=== PATIENT | female | born 1985 | race Caucasian/White ===

== ENCOUNTER 2025-02-11 12:41 | Emergency (ER) | payer OTHER, SELFPAY ==
[2025-02-11] VITALS (10 sets, daily range): BP systolic 108–137; BP diastolic 70–89; PULSE 70–96; RESP 15–20; TEMP 36.4; O2SAT 97–100
--- NOTE | ~2025-02-11 | XR_ITS ---
EXAMINATION: XR ankle LT min 3V DATE: 02/11/2025 13:11 INDICATION: Left ankle pain post injury TECHNIQUE: Anteroposterior and lateral views of the left ankle were obtained. COMPARISON: None. FINDINGS: Oblique fracture of the distal left fibular diaphysis with one shaft width lateral displacement and 2 5 degrees posterior angulation. The lateral malleolus remains in normal alignment relative to the conrad us which is also posteriorly and laterally dislocated relative to the tibial plafond as is a posterio r malleolar fracture which remains in normal alignment with respect to the lateral malleolar fragment and talar dome. There appears to be some heterotopic ossification at the tip the medial malleolus wh ich may represent sequela of old trauma. No acute medial malleolar fractures identified. Normal joint spaces in the visualized mid and hindfoot. Small plantar calcaneal spur. IMPRESSION: 1. Left ankle fracture dislocation including distal fibular diaphyseal and posterior malleolar fractu res and posterior tibiotalar dislocation. Reviewed, dictated and finalized at location A. IMPRESSION: 1. Left ankle fracture dislocation including distal fibular diaphyseal and post erior malleolar fractures and posterior tibiotalar dislocation.
--- NOTE | ~2025-02-11 | XR_ITS ---
EXAMINATION: XR ankle RT min 3V DATE: 02/11/2025 13:11 INDICATION: Right ankle injury with pain TECHNIQUE: Anteroposterior, mortise, and lateral views of the right ankle were obtained. COMPARISON: None. FINDINGS: Alignment is normal. No fracture. Joint spaces are normal. Small plantar calcaneal spur. Soft tissue swelling about the lateral malleolus. IMPRESSION: 1. No acute osseous abnormality. Reviewed, dictated and finalized at location A.
--- NOTE | ~2025-02-11 | XR_ITS ---
EXAM: XR ankle LT min 3V DATE: 02/11/2025 14:31 HISTORY: post reduction . COMPARISON: None available. FINDINGS/IMPRESSION: Interval cast placement and successful left ankle reduction. Considerably improved alignment of the left ankle fracture/dislocation which is now near anatomic. A 4 mm articular surface step-off is noted along the posterior aspect of the tibial plafond. Reviewed, dictated and finalized at location K.
--- OUTSIDE RECORDS SUMMARY | 2025-02-11 13:25 | XMS_ITS | Referral Summary ---
Author Organization [facility] Address [address] [place] [id number] Care Team Providers Care Mixer Dry Food Products Name Role Phone Farrah Marcumedis [facility] Primary Care Pr ovider Gopi Hanks MD Unavailable [phone] Allergies No known active allergies Medications metFORMIN (FORTAMET) 500 mg 24 hr tablet take 1 Tablet by oral route every day with the evening meal 90 3 12/26/2014 Active albuterol HFA (PROVENTIL HFA,VENTOLIN HFA,PROAIR HFA) 90 mcg/actuation inhaler Inhale 2 puffs 12/02/2021 Active Sprintec, 28, 0.25-35 mg-mcg per tablet 12/25/2021 Active cyanocobalamin (Vitamin B-12) 1,000 mcg/mL injection Inject 1 mL under the skin every 30 (thirty) days Active Active Problems Problem Noted Date Diagnosed Date Facial rash 12/30/2021 Overview (01/10/2022): Labs (12/30/21): Cmp/cbc wnl, ESR 11, CRP 11.2, UA trace proteinuria, 3+ blood, neg chromatin AVISE (12/30/21): OTONIEL 1:320 homogenous, neg anti-histone and carP, elevated C3 Assessment & Plan (01/20/2022 1:21 PM CDT): Serologies reveal a +OTONIEL 1:320 homogenous pattern but is otherwise unremarkable for any other autoantibodies. Anti-histone and chromatin ab are negative as well. UA showed 3+ blood however due to menstruation at time of specimen collection per patient report. Continues to have facial rash exacerbated by alcohol intake, fatigue, flu-like feeling , and AM stiffness lasting 20 minutes. Was recently on steroids per pcp for chest wheezing without any improvement of her symptoms further suggesting it is not due to an inflammatory etiology. Overall, serologies are unremarkable and a +OTONIEL is non-specific for a connective tissue disease. Positive OTONIEL is a normal variant that can be seen in females of child-bearing age. There is no clinical or serological evidence at this time to suggest a rheumatological etiology. Would recommend further evaluation by dermatology. Follow up as needed. Seen with Dr. Hanks. Assessment & Plan (12/30/2021 5:10 PM NEONATAL SOCIAL WORKER): 36-year-old female presenting with PMHx migraines and kidney stones c/o facial rash (?malar vs rosacea), fatigue, flu-like feeling , AM stiffness lasting 20 minutes, and joint pain involving the hands. No obvious synovitis or tenderness noted on peripheral exam today. Photos on patient's phone are suspicious for a malar rash however only lasts maximum 24 hours and her other symptoms are nonspecific for a CTD. Symptoms and exam are not overly suspicious for a rheumatological disease. Will order appropriate serologies to further evaluate. Should our work up be unremarkable for a CTD, could consider further evaluation by dermatology next. Follow up in 2 weeks. Sooner if needed. Seen with Dr. Hanks. Adiposity 12/26/2014 Overview (02/12/2017): Obesity Social History Tobacco Use Types Packs/Day Years Used Date Smoking Tobacco: Never Alcohol Use Standard Drinks/Week Comments Yes 0 (1 standard drink = 0.6 oz pur e alcohol) Comments Unknown Sex and Gender Information Value Date Recorded Sex Assigned at Not on file Legal Sex Female 5:01 PM NEONATAL SOCIAL WORKER Gender Identity Not on file Sexual Orientation Not on file Last Filed Vital Signs Vital Sign Reading Time Taken Comments Blood Pressure 130/84 12/30/2021 2:15 PM NEONATAL SOCIAL WORKER Pulse 67 12/30/2021 2:15 PM NEONATAL SOCIAL WORKER Temperature 36.8 C (98.2 F) 01/20/2022 1:03 PM CDT Respiratory Rate - - Oxygen Saturation 98% 12/30/2021 2:15 PM NEONATAL SOCIAL WORKER Inhaled Oxygen Concentration - - Weight 112.1 kg (247 lb 3.2 oz) 01/20/2022 1:03 PM CDT Height 170.2 cm (5' 7 ) 02/10/2017 1:26 PM CDT Body Mass Index 38.72 02/10/2017 1:26 PM CDT Plan of Treatment Not on file Insurance [employer] Care Teams Mixer Dry Food Products Relationship Specialty Start Date End Date Malina Marcum PA PCP - General 02/06/17 Gopi Hanks MD [address] [place] [address] Consulting Physician Rheumatology 11/19/21
--- OUTSIDE RECORDS SUMMARY | 2025-02-11 13:25 | XMS_ITS | Clinical Summary ---
Author Organization [facility] Address [address] [place] [id number] Care Team Providers Care Face Painter Name Role Phone Farrah Marcumedis [facility] Primary Care Pr ovider Gopi Hanks MD Unavailable [phone] Allergies No known active allergies Medications metFORMIN [...] Hanks. Assessment & Plan (12/30/2021 5:10 PM STUFFER): 36-year-old female presenting with PMHx migraines and [...] Dr. Hanks. Adiposity 12/26/2014 Overview (02/12/2017): Obesity Family History Medical History Relation Name Comments Diabetes type II Other Family hist ory of Diabetes mellitus type 2; Relation Name Status Comments Other Social History Tobacco Use Types Packs/Day Years Used Date Smoking Tobacco: Never Alcohol Use Standard Drinks/Week Comments Yes 0 (1 standard drink = 0.6 oz pur e alcohol) Comments Unknown Sex and Gender Information Value Date Recorded Sex Assigned at Not on file Legal Sex Female 5:01 PM STUFFER Gender Identity Not on file Sexual Orientation Not on file Obstetrics History Last Filed Vital Signs Vital Sign Reading Time Taken Comments Blood Pressure 130/84 12/30/2021 2:15 PM STUFFER Pulse 67 12/30/2021 2:15 PM STUFFER Temperature 36.8 C (98.2 F) 01/20/2022 1:03 PM CDT Respiratory Rate - - Oxygen Saturation 98% 12/30/2021 2:15 PM STUFFER Inhaled Oxygen Concentration - - Weight 112.1 kg (247 lb 3.2 oz) 01/20/2022 1:03 PM CDT Height 170.2 cm (5' 7 ) 02/10/2017 1:26 PM CDT Body Mass Index 38.72 02/10/2017 1:26 PM CDT Plan of Treatment Health Maintenance Due Date Last Done Comments Cervical Cancer Screening 1985 Depression Screening 1985 Hepatitis C Screening 1985 DTaP/Tdap/Td Vaccine (1 - Tdap) 1996 Varicella Vaccines (1 of 2 - 13+ 2-dose series) 1998 Hepatitis B Screening 2003 Regular Well Visit/Exam 18-64 2003 Covid-19 Vaccine (2023-2 5 season) 2024 01/26/2021, 01/07/2021, 12/23/2020 Influenza Vaccine (Season Ended) 2025 HPV Vaccines Aged Out No longer eligi ble based on patient's age to complete this topic Pneumococcal vaccine <65 Aged Out No longer eligible based on patient's age to complete this topic Insurance [employer] [facility] [employer] [place] [id number] Care Teams Face Painter Relationship Specialty Start Date End Date Malina Marcum PA PCP - General 02/06/17 Gopi Hanks MD [address] [place] [address] Consulting Physician Rheumatology 11/19/21
--- OUTSIDE RECORDS SUMMARY | 2025-02-11 13:25 | XMS_ITS | Clinical Summary ---
Author Organization [facility] Address [address] [place] [id number] Care Team Providers Care Project Administrative Assistant Name Role Phone Malina Marcum Primary Care Provider [phone] Allergies No known active allergies Medications No known medications Active Problems Problem Noted Date Diagnosed Date Frontal sinusitis 09/10/2023 Maxillary sinusitis 09/10/2023 Butterfly rash 09/10/2023 Cough 09/10/2023 Fatigue 09/10/2023 Hypomenorrhea 09/10/2023 Irregular periods 09/10/2023 Multiple joint pain 09/10/2023 Nasal congestion 09/10/2023 Neck swelling 09/10/2023 Night sweats 09/10/2023 Impaired glucose tolerance 07/06/2023 Insulin resistance 07/06/2023 Vitamin D deficiency 07/06/2023 Weight gain 07/06/2023 Acute sinusitis 01/18/2022 History of severe acute resp iratory syndrome coronavirus 2 (SARS-CoV-2) disease 01/13/2022 Facial rash 12/30/2021 Overview (09/10/2023): Labs (12/30/21): Cmp/cbc wnl, ESR 11, CRP 11.2, UA trace proteinuria, 3+ blood, neg chromatin AVISE (12/30/21): OTONIEL 1:320 homogenous, neg anti-histone and carP, elevated C3 Last Assessment & Plan: Serologies reveal a +OTONIEL 1:320 homogenous pattern [...] up as needed. Seen with Dr. Hanks. Vitamin B12 deficiency (non anemic) 12/20/2021 Adiposity 12/26/2014 Overview (09/10/2023): Obesity Immunizations Name Administration Dates Next Due MODERNA COVID-19 (12+) MRNA, LNP-S, PF, 100 MCG/ 0.5 ML DOSE 01/26/2021,12/29/2020 Social History Tobacco Use Types Packs/Day Years Used Date Smoking Tobacco: Never Smokeless Tobacco: Never Tobacco Cessation:Counseling Given: No Alcohol Use Standard Drinks/Week Comments Not Currently 0 (1 standard drink = 0.6 oz pur e alcohol) PHQ-2 Answer Date Recorded Patient Health Questionnaire-2 Score 0 08/08/2024 Comments No Sex and Gender Information Value Date Recorded Sex Assigned at Not on file Legal Sex Female 9:27 AM CDT Gender Identity Not on file Sexual Orientation Not on file Last Filed Vital Signs Vital Sign Reading Time Taken Comments Blood Pressure 103/69 08/08/2024 7:40 AM CDT Pulse 66 08/08/2024 7:40 AM CDT Temperature 36.9 C (98.5 F) 12/04/2023 2:09 PM EDGE POLISHER Respiratory Rate 18 12/04/2023 2:09 PM EDGE POLISHER Oxygen Saturation 99% 08/08/2024 7:40 AM CDT Inhaled Oxygen Concentration - - Weight 106.6 kg (235 lb) 08/08/2024 7:40 AM CDT Height 175.3 cm (5' 9 ) 08/08/2024 7:40 AM CDT Body Mass Index 34.7 08/08/2024 7:40 AM CDT Plan of Treatment Upcoming Encounters Date Type Department Care Team (Late st Contact Info) Description 02/22/2025 10:20 AM CDT Office Visit [facility] - [facility] [address], [address] [place] [address] Dary Fields MD [address] [place] [address] Health Maintenance Due Date Last Done Comments Cervical Cancer Screening Pa p Smear (Age 30 to 64) Every 3 Years 1985 Annual Physical 1988 Hepatitis C 2003 DTaP, Tdap and Td Vaccines ( 1 - Tdap) 2004 Hepatitis B Vaccines (1 of 3 - 19+ 3-dose series) 2004 Cervical Cancer Screening Pa p with HPV Testing (Age 30 to 64) Every 5 Years 2015 Cervical Cancer Screening wi th HPV 2015 COVID-19 Vaccine (3 - 2023-2 5 season) 2024 01/26/2021, 12/29/2020 PHQ-2 ([facility]) 11/09/2024 08/08/2024 HPV Vaccines Aged Out No longer eligi ble based on patient's age to complete this topic Meningococcal B Vaccine Aged Out No l onger eligible based on patient's age to complete this topic Meningococcal Vaccine Aged Out No jonathan armen eligible based on patient's age to complete this topic Pneumococcal Vaccine: Pediatrics (0 to 5 Years) and At-Risk Patients (6 to 64 Years) Aged Out No longer eligible b ased on patient's age to complete this topic RSV Immunizations Under 20 Months Aged Out No longer eligible b ased on patient's age to complete this topic Insurance [facility] Care Teams Project Administrative Assistant Relationship Specialty Start Date End Date Malina Marcum PA [address] [place] [address] PCP - General PHYSICIAN COMBAT SYSTEMS OPERATOR [employer] 06/30/21
--- OUTSIDE RECORDS SUMMARY | 2025-02-11 13:25 | XMS_ITS | Data Portability ---
Author Organization [facility], Main Office Address [address] [place] [address] Assessment No assessment recorded. Plan of Treatment Reminders Order Date Submit Date Provider Last Modified By Organization Details Last Modified Time Details Appointments None recorded. Lab TSH + free T4, serum 2022 023 [email or web address] [facility], [address] [address], [place], [address], 4 16:33:24 T3, free, serum or plasma 2022 023 [email or web address] [facility], [address] [place] [address], [place], [address], 4 16:33:24 OTONIEL (antinuclea r antibodies) screen, serum 2022 023 [email or web address] [facility], [address] [place] [address], [place], [address], 4 16:33:23 HbA1c (hemoglobin A1c), blood 2022 023 [email or web address] [facility], [address] [place] [address], [place], [address], 4 16:33:23 insulin, serum 2022 023 [email or web address] [facility], [address] [address], [place], [address], 4 16:33:22 lipid panel, serum 08/28/ 2023 08/28/2 023 [email or web address] [facility], [address] [address], [place], [address], 4 16:33:23 CMP, serum or plasma 2022 023 [email or web address] [facility], [address] [address], [place], [address], 4 16:33:23 CBC w/ auto diff 2022 023 [email or web address] [facility], [address] [place] [address], [place], [address], 4 16:33:23 iron + TIBC + ferritin, serum 2022 023 [email or web address] [facility], [address] [place] [address], [place], [address], 4 16:33:24 vitamin B12 + folate, serum or blood 2022 023 [email or web address] [facility], [address] [place] [address], [place], [address], 4 16:33:25 vitamin D, 25-hydroxy, total, serum 2022 023 [email or web address] [facility], [address] [place] [address], [place], [address], 4 16:33:25 rf (rheumatoid factor), serum 2022 023 [email or web address] [facility], [address] [place] [address] 2, [place], [address], 4 16:33:23 C reactive protein, QN, serum or plasma 2022 023 [email or web address] [facility], [address] [place] [address], [place], [address], 4 16:33:24 ESR (erythrocyt e sedimentati on rate), blood 2022 023 [email or web address] [facility], [address], [place], [address], 4 16:33:24 Referral None recorded. Procedures None recorded. Surgeries None recorded. Imaging None recorded. Medication Orders phentermine 37.5 mg tablet 2022 023 [email or web address] [facility] [address], [place], [address], 3 14:15:19 Patient TargetsNo targets recorded. Patient InstructionsNo instructions recorded. Reason for Referral None Reported. Results Created Date Observation Date Name Description Value Unit Range Abnormal Flag Note LastModifiedBy Organization Detail LastModifiedTime 10/14/20 21 10/14/2021 pregn karan test, urine HCG negati ve Not Available [facility] [address], [address], [place], [address], 10/14/2021 16:39:59 11/27/19 22 11/27/2021 XR, chest , 2 view No observ ation record ed. [id number], [place], [address], 01/07/2023 07:36:21 03/19/20 22 03/07/2022 polys omnog philippe, split night No observ ation record ed. [id number] [facility] ([facility]) [address] [place], [address], 01/07/2023 07:36:21 Result Notes None recorded. Problems Name Problem SNOMED Code Status Onset Date Resolution Date Notes Provider Name and Address Organization Details Recorded Time Acute sinusitis 23413837 Active 2021 Not Available [facility] 3 07:31:35 History of SARS-CoV- 2 [id number] 9024795 Active 2021 Not Available [facility] 3 07:31:35 Neck swelling 421622609 Active Not Available [facility] 3 07:31:35 Butterfly rash 32442031 Active Not Available [facility] 3 07:31:35 Multiple joint pain 94918435 Active Not Available [facility] 3 07:31:35 Night sweats 46642914 Active Not Available [facility] 3 07:31:35 Acute urinary tract infection 737236206 Active 2022 Not Available [facility] 3 07:31:36 Cough 34080886 Active Not Available [facility] 3 07:31:36 Vitamin B12 deficienc y (non anemic) 29367180 Active 2021 Not Available [facility] 3 07:31:36 Hypomenor nestor 63919227 Completed Not Available [facility] 3 07:31:36 Nasal congestio n 29494399 Active Not Available [facility] 3 07:31:36 Frontal sinusitis 51840711 Active Not Available [facility] 3 07:31:36 Irregular periods 85053744 Completed Not Available [facility] 3 07:31:36 Fatigue 93603017 Active Not Available [facility] 3 07:31:36 Maxillary sinusitis 05078607 Active Not Available [facility] 3 07:31:36 Insulin resistanc e 034075914 Active 2022 JAJA Martel [address], [address], [address] , [email or web address] 3 16:13:49 Impaired glucose tolerance 4161321 Active 2022 JAJA Martel [address], [address], [place], [address] , [email or web address] 3 16:14:30 Weight gain 7618385 Active 2022 JAJA Martel [address], [address], [place], [address] , [email or web address] 3 16:15:10 Vitamin D deficienc y 30697745 Active 2022 JAJA Martel [address], [address], [place], [address] , [facility] [employer] 3 16:16:40 Stomach cramps 32072929 Active 2022 JAJA Martel [address], [address], [place], [address] , [employer] 3 17:28:54 Notes:COVID-19 pos 11/02/21 Problem Notes None recorded. Procedures Surgical History Date Name Laterality Status Provider Name and Address Organization Details Recorded Time 08/26/2018 Date of Last Pap Smear completed Not Available [facility] 01/07/2023 07:26:54 Imaging Results Imaging Date Name Status LastModified by [facility] Details LastModified Time 03/07/2022 polysomnogr am, split night completed [id number] [facility] ([facility]) [address] [place], [address], 01/07/2023 07:36:21 11/27/2021 XR, chest, 2 view completed [id number], [place], [address], 01/07/2023 07:36:21 Procedure Notes None recorded. Medical Equipment None Reported. Allergies No known drug allergies Medications Name Sig Start Date Stop Date Status Note LastModified by Organization Details LastModified Time Aviane 0.1 mg-20 mcg tablet Take 1 tablet every day by oral route. 09/23 completed Not Available Not Available Not Available azithromyci n 250 mg tablet TAKE 2 TABLETS BY MOUTH ON DAY 1, AND THEN TAKE 1 TABLET BY MOUTH ONCE A DAY ON DAY 2 THROUGH DAY 5 03/07 completed Not Available Not Available Not Available benzonatate 200 mg capsule Take 1 capsule 3 times a day by oral route as needed. 11/23 completed Not Available Not Available Not Available hydrocodone 5 mg-acetamin ophen 325 mg tablet TK 1 T PO Q 6 H PRN P 09/23 completed Not Available Not Available Not Available Medrol (Dino) 4 mg tablets in a dose pack use as directed 12/11 completed Not Available Not Available Not Available prednisone 20 mg tablet TAKE 2 TABLETS BY MOUTH ONCE DAILY FOR 5 DAYS active Not Available Not Available No t Available [employer] USE DIRECTED 07/06 completed Not Available Not Available Not Available phentermine 37.5 mg tablet TAKE 1 TABLET BY MOUTH ONCE DAILY IN THE MORNING active Not Available Not Available No t Available sulfamethox azole 800 mg-trimetho prim 160 mg tablet TAKE 1 TABLET BY MOUTH TWICE DAILY FOR 7 DAYS 12/02 completed Not Available Not Available Not Available famotidine 20 mg tablet 06/10 completed Not Available Not Available Not Available tamsulosin 0.4 mg capsule 09/23 completed Not Available Not Available Not Available benzonatate 100 mg capsule TAKE 1 CAPSULE BY MOUTH EVERY 8 HOURS NEEDED active Not Available Not Available No t Available cyanocobala min (vit B-12) 1,000 mcg/mL injection solution Inject 2 mL every month by subcutane ous route. 07/06 completed [facility] [phone] Not Available Not Available Not Available Cipro 500 mg tablet Take 1 tablet every 12 hours by oral route. 09/23 completed Not Available Not Available Not Available codeine 10 mg-guaifene sin 100 mg/5 mL oral liquid Take 10 mL every 4-6 hours by oral route as needed. 01/13 completed Not Available Not Available Not Available zolpidem 5 mg tablet 07/06 completed Not Available Not Available Not Available ibuprofen 600 mg tablet Take by oral route as needed for 5 days. 09/23 completed Not Available Not Available Not Available hydrocodone 10 mg-chlorphe niramine 8 mg/5 mL oral susp extend.rel 12hr TAKE 5ML PO Q 12 H 06/10 completed Not Available Not Available Not Available albuterol sulfate HFA 90 mcg/actuati on aerosol inhaler Inhale 2 puffs every 4-6 hours by inhalatio n route as needed. 07/06 completed Not Available Not Available Not Available Vitamin D2 1,250 mcg (50,000 unit) capsule Take 1 capsule every week by oral route. 09/23 completed Not Available Not Available Not Available ondansetron 4 mg disintegrat ing tablet 09/23 completed Not Available Not Available Not Available metformin ER 500 mg tablet,exte nded release 24 hr TAKE 1 TABLET BY MOUTH ONCE DAILY WITH DINNER 07/06 completed Not Available Not Available Not Available dicyclomine 10 mg capsule TAKE 1 CAPSULE BY MOUTH THREE TIMES DAILY NEEDED active Not Available Not Available No t Available spironolact one 50 mg tablet TAKE 1 TABLET BY MOUTH ONCE DAILY IN THE MORNING 07/06 completed Not Available Not Available Not Available amoxicillin 875 mg-potassiu m clavulanate 125 mg tablet TAKE 1 TABLET BY MOUTH EVERY 12 HOURS active Not Available Not Available No t Available Sprintec (28) 0.25 mg-0.035 mg tablet TAKE 1 TABLET BY MOUTH ONCE DAILY 07/06 completed Not Available Not Available Not Available nitrofurant oin monohydrate /macrocryst als 100 mg capsule TAKE 1 CAPSULE BY MOUTH EVERY 12 HOURS 01/12 completed Not Available Not Available Not Available Vitals Date Recorded Body height Provider Name an d Address Organization Details Last Updated DateTime 11/12/2021 177.8 cm Not Available [facility] 3 07:30:45 Date Recorded Body height Provider Name an d Address Organization Details Last Updated DateTime 12/02/2021 177.8 cm Not Available [facility] 3 07:30:45 Date Recorded Body height Body temperature Provider N isaak and Address Organization Details Last Updated DateTime 12/20/2021 177.8 cm 97.2 [degF] Not Available [facility] 01/07/2023 07:30:47 Date Recorded Body height Body temperature Body mass index (BMI) Body weight Respiratory rate Oxygen saturation Oxygen saturation in Arterial blood by Pulse oximetry Heart rate Systolic blood pressure Diastolic blood pressure Provider Name and Address Organization Details Last Updated DateTime 3 177.8 cm 97.7 [degF] 35.2 kg/m2 276550. 13 g 16 /min 98 % 98 % 75 /min 122 mm[Hg] 72 mm[Hg] DIXIE Rene [place] [facility] [place] [email or web address] [facility] 3 15:52:45 Date Recorded Systolic blood pressure Diastolic blood pressure Provider Name and Address Organization Details Last Updated DateTime 07/06/2023 120 mm[Hg] 70 mm[Hg] JAJA Martel [address], [facility] [address], [place], [address], [place] [facility] [place] [email or web address] [facility] 07/06/2023 16:17:29 Social History Question Answer Notes LastModified by Organizat ion Details LastModified Time Tobacco Smoking Status Never Smoker Not Available [facility] 01/07/2023 07:26:49 What Is Your Level Of Alcohol Consumption? None [id number] Information not available 01/07/2023 What Is Your Level Of Caffeine Consumption? None MIGRATION.[id number] 2182 Information not available 01/07/2023 How Much Tobacco Do You Chew? None MIGRATION.[id number] 0385 Information not available 01/07/2023 In The 14 Days Before Symptom Onset, Have You Had Close Contact With A Laboratory-confir med COVID-19 While That Case Was Ill? No MIGRATION.[id number] 1672 Information not available 01/07/2023 In The 14 Days Before Symptom Onset, Have You Had Close Contact With A Person Who Is Under Investigation For COVID-19 While That Person Was Ill? No MIGRATION.[id number] 9203 Information not available 01/07/2023 Are You Currently Employed? Yes [email or web address] Information not available 01/12/2023 What Type Of Diet Are You Following? REGULAR MIGRATION.[id number] [id number] Information not available 01/07/2023 Which Illicit Or Recreational Drugs Have You Used? None MIGRATION.[id number] 4777 Information not available 01/07/2023 Do You Or Have You Ever Used E-cigarettes Or Vape? 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 No MIGRATION.510192 2895 Information not available 01/07/2023 Do You Use Insect Repellent Routinely? No [email or web address] Information not available 01/12/2023 What Is Your Relationship Status? Single MIGRATION.862190 1429 Information not available 01/07/2023 Do You Use Your Seat Belt Or Car Seat Routinely? Yes MIGRATION.127159 6204 Information not available 01/07/2023 Do You Have Smoke And Carbon Monoxide Detectors In Your Home? Yes MIGRATION.560816 6084 Information not available 01/07/2023 Do You Or Have You Ever Used Smokeless Tobacco? Never Used Smokeless Tobacco MIGRATION.936424 1733 Information not available 01/07/2023 How Much Tobacco Do You Smoke? No MIGRATION.068475 1607 Information not available 01/07/2023 Do You Use Any Illicit Or Recreational Drugs? No MIGRATION.842836 4041 Information not available 01/07/2023 Do You Use Sunscreen Routinely? Yes [email or web address] Information not available 01/12/2023 Have You Recently Traveled Abroad? No MIGRATION.665155 9849 Information not available 01/07/2023 Do You Have Any Dietary Restrictions? No MIGRATION.972678 4201 Information not available 01/07/2023 Do You Or Have You Ever Used Any Other Forms Of Tobacco Or Nicotine? No MIGRATION.758419 1535 Information not available 01/07/2023 Sex: Female Functional Status Question Answer Note LastModified by [employer] ion Details LastModified Time What is your exercise level? Occasional [id number] Information not available 01/07/2023 Mental Status None recorded. Family History Relationship Description Onset Age of this Age Resolved Age Notes LastModified by Organization Details LastModified Time Father Vitamin D deficiency [id number] [id number] Not available 01/07/2023 07:26:58 Maternal Grandmother Malignant tumor of breast MIGRATION.540 [id number] Not available 01/07/2023 07:26:58 Unspecified Relation Malignant tumor of colon MIGRATION.734 [id number] Not available 01/07/2023 07:26:58 Unspecified Relation Malignant tumor of lung MIGRATION.449 [id number] Not available 01/07/2023 07:26:58 Unspecified Relation Diabetes mellitus MIGRATION.515 [id number] Not available 01/07/2023 07:26:58 Mother Diabetes mellitus MIGRATION.292 [id number] Not available 01/07/2023 07:26:58 Mother Cerebrovascu lar accident MIGRATION.989 [id number] Not available 01/07/2023 07:26:58 Mother Hypertensive disorder MIGRATION.952 [id number] Not available 01/07/2023 07:26:58 Mother Heart disease Pacema ker MIGRATION.249 [id number] Not available 01/07/2023 07:26:58 Mother Cirrhosis of liver MIGRATION.249 [id number] Not available 01/07/2023 07:26:58 Mother Raynaud's disease [email or web address] Not available 07/06 15:51:22 Mother Carotid artery stenosis [email or web address] Not available 07/06 15:51:56 Mother Nonalcoholic steatohepati tis [email or web address] Not available 07/06 15:54:23 Medical History Condition Response HEADACHES/MIGRAINES Y ANXIETY DISORDER Y OBESITY Y KIDNEY STONES Y DIZZINESS Y SKIN PROBLEMS Y URINARY/BLADDER/KIDNEY PROBLEMS Y DEPRESSION (INCLUDING POST ) Y BACK / NECK PROBLEMS Y SLEEP DISORDER Y Gynecological History Statement/Question Response Menses Monthly Y Date of Last Pap 06/09/2019 Abnormal Pap N Date of Last Pap Smear 08/26/2018 Current Control Method None Date of LMP 09/28/2021 Sexually Active? Y Obstetrics History GPAL:G 1 P 0 0 0 1 Type Value Living 1 Total 1 Immunizations Vaccine Type Date Status Note Provider Nam e and Address Organization Details Recorded Time COVID-19, mRNA, LNP-S, PF, 100 mcg/0.5mL dose or 50 mcg/0.25mL dose 01/07/2021 completed Not Available [facility] 3 07:36:08 COVID-19, mRNA, LNP-S, PF, 100 mcg/0.5mL dose or 50 mcg/0.25mL dose 12/23/2020 completed Not Available [facility] 3 07:36:08 Past Encounters Encounter ID Performer Location Encounter Start Date Encounter Closed Date Diagnosis/Indication Diagnosis SNOMED-CT Code Diagnosis ICD10 Code Diagnosis Note [id number] [facility] [address] [address], [address] [place] [address] 09/23/2021 00:00:00 10/08/2021 16:41:07 [id number] _ATHENA_M IGRATION_ DEFAULT_1 _1 , 10/14/2021 00:00:00 10/14/2021 17:21:54 [id number] [facility] [address] [address], [address] [place] [address] 11/12/2021 00:00:00 12/09/2021 21:17:05 [id number] [facility] [address] [address], [address] [place] [address] 11/22/2021 00:00:00 11/25/2021 13:30:26 [id number] [facility] [address] JAYSHREE [place]CLAY [address] 12/02/2021 00:00:00 12/08/2021 21:59:09 [id number] [facility] [address] [place]REE [place]CL[place] [address] 12/20/2021 00:00:00 12/20/2021 19:10:39 [id number] JAJA Martel [facility] [address] [place] [address] 07/06/2023 15:46:45 07/06/2023 16:25:17 Adult health examination 546121401 Z00.00 well exam completed. annual fasting labs are ordered Cholesterol screening 27 8798416 Z13.220 fasting lipids due Insulin resistance 78168 5000 E88.81 fasting insulin due Impaired g lucose tolerance 6813775 R73.03 a1c due Butterfly rash 40084769 R21 repeat OTONIEL panel multiplex Weight gain 3604003 R63. 5 screening TFTs due Multiple joint pain 3567 8005 M25.50 screening ESR, CRP and RF Fatigue 09450599 R53.83 screening iron panel and b12, folate Vitamin D deficiency 347 60635 E55.9 vit D lab due Body mass index 30+ - obesity 677303460 Z68.35 Rx for phentermin e 37.5mg daily. Health Concerns Section Related Observation LastModified by Organization Detai ls LastModified Time None Recorded Concern Status LastModified by Organization Details LastModified Time None Recorded Advance Directives Directive None Recorded Payers Encounter Date Sequence Insurance Name Policy Number Policy Mccall Covered Member ID Mccall Member ID Guarantor Name 07/06/2023 1 [facility] [employer] [facility] [id number] Corrine Robertson [id number] Corrine Robertson Notes Date Note Type Note Provider Name and Address Organization Details Recorded Time 11/12/2021 text/html Generic HPI TemplateReported bypatient.Notes:Pt is f/u w/ labs. They are in review to you. Not Available [place] [facility] 12/09/2021 21:17:05 12/02/2021 text/html VomitingReported bypatient.Quality:not changing Duration:days; 1 weeks Onset/Timing:acute; intermittent Context:no one else with similar symptoms; no possible food sources; no recent travel; no well water; non-smoker; no drug/alcohol abuse; no drug alcohol withdrawal Alleviating Factors:nothing gives relief Aggravating Factors:nothing makes it worse Associated Symptoms:fever(99 range)Notes:Pt states first time it was after dinner. Then it happened at 2 am once. Also happened again while in the shower. Says it happens out of the blue.WheezingReported bypatient.Quality:tig htness;can't get a deep breath Severity:mild Duration:1 weeks; constant Onset/Timing:at night; wakes from sleep Context:when lying down; after respiratory illness (COVID-19 pos 11/03/21) Alleviating factors:nothing helps (been trying zyrtec) Aggravating factors:nothing makes it worse Associated Symptoms:no chest pain; no palpitations; no orthopnea; no PND; no chills; no sputum production; no hemoptysis; no dyspepsia; no allergies;fever Not Available [employer] 12/08/2021 21:59:09 07/06/2023 text/html Generic HPI TemplateReported bypatient.Notes:Pt is here for wellness. No chronic meds. she continues to have the flare ups of facial/cheek rash that is red and she has episodes weekly of feeling feverish with no registered fever when she checks. She still have fatigue that is intense and joint pains. Weight continues to climb. Strong fam hx of autoimmune problems but she saw Rheumatology a few years ago and they did not feel autoimmune was an issue. wellness JAJA Martel [address] [facility], [facility] [address], [place], [address], [employer] 07/07/2023 14:20:27 OBGyn Episode No OBEpisode recorded.
--- OUTSIDE RECORDS SUMMARY | 2025-02-11 13:25 | XMS_ITS | Data Portability ---
Author Organization [facility] Address [address] [place] [address] Care Team Providers Care Quarter Trimmer Name Role Phone MALINA ALDANA Primary Care Provider Unavailab le Assessment No assessment recorded. Plan of Treatment Reminders Order Date Submit Date Provider Last Modified By Organization Details Last Modified Time Details Appointments ANY 15 2024 01:15P M AJJA Martel Not available Not available Not available Lab OTONIEL (antinucl ear antibodie s) screen, serum 2023 024 [place], [address], [place], [address], 12/01/2024 09:08:47 lipid panel, serum 2023 024 [facility], [address], [place], [address], 12/01/2024 09:08:49 vitamin B12 + folate, serum or blood 2023 024 [facility], [address], [place], [address], 12/01/2024 09:08:53 vitamin D, 25-hydrox y, total, serum 2023 024 [facility] [facility], [address], [place], [address], 12/01/2024 09:09:03 CMP, serum or plasma 2023 024 [facility], [address], [place], [address], 12/01/2024 09:08:51 CBC w/ auto diff 2023 DOM [facility], [address], [place], [address], 12/01/2024 09:08:59 iron + total iron-bind ing capacity (TIBC), serum 2023 DOM [facility], [address], [place], [address], 12/01/2024 09:08:54 ferritin, serum or plasma 2023 DOM [facility], [address], [place], [address], 12/01/2024 09:08:58 TSH + free T4, serum 2023 DOM [facility], [address], [place], [address], 12/01/2024 09:08:50 rf (rheumato id factor) + anti-ccp abs, serum 2023 DOM [facility], [address], [place], [address], 12/01/2024 09:08:46 erythrocy te sedimenta tion rate by westergre n method 2023 DOM [facility], [address], [place], [address], 12/01/2024 09:09:00 C reactive protein, QN, serum or plasma 2023 DOM [facility], [address], [place], [address], 12/01/2024 09:09:02 HbA1c (hemoglob in A1c), blood 2023 024 DOM [facility], [address], [place], [address], 12/01/2024 09:08:55 insulin, serum 2023 024 DOM [facility], [address], [place], [address], 12/01/2024 09:08:57 OTONIEL (antinucl ear antibodie s) screen, serum 2023 024 [email or web address] [facility], [address], [place], [address], 06/02/2024 09:46:04 lipid panel, serum 2023 024 [email or web address] [facility], [address], [place], [address], 05/11/2024 10:43:33 vitamin B12 + folate, serum or blood 2023 024 [email or web address] [facility], [address], [place], [address], 05/11/2024 10:44:45 vitamin D, 25-hydrox y, total, serum 2023 024 [email or web address] [facility], [address], [place], [address], 05/11/2024 10:44:36 CMP, serum or plasma 2023 024 [email or web address] [facility], [address], [place], [address], 05/11/2024 10:44:27 CBC w/ auto diff 2023 024 [email or web address] [facility], [address], [place], [address], 05/11/2024 10:44:11 iron + total iron-bind ing capacity (TIBC), serum 2023 [email or web address] [facility], [address], [place], [address], 05/11/2024 10:43:59 ferritin, serum or plasma 2023 [email or web address] [facility], [address], [place], [address], 05/11/2024 10:43:49 TSH + free T4, serum 2023 [email or web address] [facility], [address], [place], [address], 05/11/2024 10:43:41 rf (rheumato id factor) + anti-ccp abs, serum 2023 [email or web address] [facility], [address], [place], [address], 05/11/2024 10:45:15 erythrocy te sedimenta tion rate by westergre n method 2023 [email or web address] [facility], [address], [place], [address], 05/11/2024 10:45:03 C reactive protein, QN, serum or plasma 2023 [email or web address] [facility], [address], [place], [address], 05/11/2024 10:44:54 HbA1c (hemoglob in A1c), blood 2023 [email or web address] [facility], [address], [place], [address], 05/11/2024 10:43:24 insulin, serum 2023 [email or web address] [facility], [address], [place], [address], 05/11/2024 10:43:[address] referral 2023 024 [facility], [address], [place], [address], 07/08/2024 13:42:37 Procedures None recorded. Surgeries None recorded. Imaging MRI, brain, w/wo contrast 2023 [facility], [address], [address], [place], [address], 07/08/2024 13:42:17 Medication Orders trazodone 50 mg tablet 2023 024 [facility], [address], [address], 10/05/2024 09:40:37 Medrol (Dino) 4 mg tablets in a dose pack 2023 025 [facility], [address], [address], 12/16/2024 12:42:25 trazodone 50 mg tablet 2023 024 [facility], [address], [address], 03/03/2024 15:49:24 phentermi ne 37.5 mg tablet 2023 024 [facility], [id number], [address], 10/05/2024 09:20:42 Patient TargetsNo targets recorded. Patient Instructions Encounter Date Encounter Id Patient Instructions Last Modified By Organization Details Last Modified Time 10/05/2024 [id number] A healthy lifestyle: care instructions [email or web address] Not available 10/05/2024 09:40:32 Reason for Referral Neurologist Referral for Par esthesia Referring Physician: Malina Aldana, Internal Medicine, Encounter Date: 03/03/2024 Results Created Date Observation Date Name Description Value Unit Range Abnormal Flag Note LastModifiedBy Organization Detail LastModifiedTime 11/25/1911/26/2024 RHEUM ATOID ARTHR ITIS PROFI LE rheumatoid factor (rf) <10.0 IU/mL <14.0 Not Available [facility]) [address] [place], [address], 12/01/2024 09:08:46 11/25/1911/26/2024 RHEUM ATOID ARTHR ITIS PROFI LE anti-ccp Ab, IgG/IgA 3 units 0-19 Negat ashlyn <20 Weak posit ashlyn 20 - 39 Moder ate posit ashlyn 40 - 59 Stron g posit ashlyn >59 Not Available [facility] ([facility]) [address] [place], [address], 12/01/2024 09:08:46 11/25/19 25 11/28/2024 ANTIN UCLEA R AB MULTI PLEX RFX 9 OTONIEL direct NEGATI VE negati ve Not Available [facility] ([facility]) [address] [place], [address], 12/01/2024 09:08:47 11/25/1911/27/2024 LIPID PANEL W/ CHOL/ HDL RATIO cholesterol, total 146 mg/dL 100-19 9 Not Available [facility] ([facility]) [address] [place], [address], 12/01/2024 09:08:48 11/25/19 25 11/27/2024 LIPID PANEL W/ CHOL/ HDL RATIO triglyceride s 62 mg/dL 0-149 Not Available [facility]) [address] [place], [address], 12/01/2024 09:08:48 11/25/1911/27/2024 LIPID PANEL W/ CHOL/ HDL RATIO HDL cholesterol 38 mg/dL >39 below low normal Not Available [facility] ([facility]) [address] [place], [address], 12/01/2024 09:08:48 11/25/19 25 11/27/2024 LIPID PANEL W/ CHOL/ HDL RATIO VLDL cholesterol taco 13 mg/dL 5-40 Not Available [facility]) [address] [place], [address], 12/01/2024 09:08:48 11/25/19 25 11/27/2024 LIPID PANEL W/ CHOL/ HDL RATIO LDL chol calc ([facility]) 95 mg/dL 0-99 Not Available [facility]) [address] [place], [address], 12/01/2024 09:08:48 11/25/1911/27/2024 LIPID PANEL W/ CHOL/ HDL RATIO T. chol/HDL ratio 3.8 ratio 0.0-4. 4 T. Chol/ HDL Ratio Men Women 1/2 Avg.R isk 3.4 3.3 Avg.R isk 5.0 4.4 2X Avg.R isk 9.6 7.1 3X Avg.R isk 23.4 11.0 Not Available [facility] ([facility]) [address] [place], [address], 12/01/2024 09:08:48 11/25/1911/26/2024 TSH+F REE T4 TSH 2.620 uIU/m L 0.450- 4.500 Not Available [facility] ([facility]) [address] [place], [address], 12/01/2024 09:08:50 11/25/19 25 11/26/2024 TSH+F REE T4 T4,free(dire ct) 0.90 NG/dL 0.82-1 .77 Not Available [facility] ([facility]) [address] [place], [address], 12/01/2024 09:08:50 11/25/19 25 11/27/2024 COMP. METAB OLIC PANEL (14) glucose 86 mg/dL 70-99 Not Available [facility] ([facility]) [address] [place], [address], 12/01/2024 09:08:51 11/25/19 25 11/27/2024 COMP. METAB OLIC PANEL (14) BUN 6 mg/dL 6-20 Not Available [facility] ([facility]) [address] [place], [address], 12/01/2024 09:08:51 11/25/19 25 11/27/2024 COMP. METAB OLIC PANEL (14) creatinine 0.63 mg/dL 0.57-1 .00 Not Available [facility] ([facility]) [address] [place], [address], 12/01/2024 09:08:51 11/25/19 25 11/27/2024 COMP. METAB OLIC PANEL (14) eGFR 116 mL/mi n/1.7 3 >59 Not Available [facility] ([facility]) [address] [place], [address], 12/01/2024 09:08:51 11/25/19 25 11/27/2024 COMP. METAB OLIC PANEL (14) BUN/creatini ne ratio 10 9-23 Not Available [facility]) [address] [place], [address], 12/01/2024 09:08:51 11/25/19 25 11/27/2024 COMP. METAB OLIC PANEL (14) sodium 143 mmol/ L 134-14 4 Not Available [facility] ([facility] [address] [facility], [address], 12/01/2024 09:08:51 11/25/19 25 11/27/2024 COMP. METAB OLIC PANEL (14) potassium 4.2 mmol/ L 3.5-5. 2 Not Available [facility] ([facility]) [address] [place], [address], 12/01/2024 09:08:51 11/25/19 25 11/27/2024 COMP. METAB OLIC PANEL (14) chloride 106 mmol/ L 96-106 Not Available [facility] ([facility]) [address] [place], [address], 12/01/2024 09:08:51 11/25/19 25 11/27/2024 COMP. METAB OLIC PANEL (14) carbon dioxide, total 24 mmol/ L 20-29 Not Available [facility] ([facility] [address] [facility] [place], [address], 12/01/2024 09:08:51 11/25/19 25 11/27/2024 COMP. METAB OLIC PANEL (14) calcium 9.0 mg/dL 8.7-10 .2 Not Available [facility] ([facility] [address] [facility] [place], [address], 12/01/2024 09:08:51 11/25/19 25 11/27/2024 COMP. METAB OLIC PANEL (14) protein, total 6.7 g/dL 6.0-8. 5 Not Available [facility] ([facility]) [address] [facility] [place], [address], 12/01/2024 09:08:51 11/25/19 25 11/27/2024 COMP. METAB OLIC PANEL (14) albumin 3.9 g/dL 3.9-4. 9 Not Available [facility] ([facility]) [address] [facility] [place], [address], 12/01/2024 09:08:51 11/25/19 25 11/27/2024 COMP. METAB OLIC PANEL (14) globulin, total 2.8 g/dL 1.5-4. 5 Not Available [facility] ([facility]) [address] [facility] [place], [address], 12/01/2024 09:08:51 11/25/19 25 11/27/2024 COMP. METAB OLIC PANEL (14) bilirubin, total 0.5 mg/dL 0.0-1. 2 Not Available [facility] ([facility]) [address] [facility] [place], [address], 12/01/2024 09:08:51 11/25/19 25 11/27/2024 COMP. METAB OLIC PANEL (14) alkaline phosphatase 67 IU/L 44-121 Not Available [facility]) [address] [facility] [place], [address], 12/01/2024 09:08:51 11/25/19 25 11/27/2024 COMP. METAB OLIC PANEL (14) AST (SGOT) 18 IU/L 0-40 Not Available [facility] ([facility]) [address] [facility] [place], [address], 12/01/2024 09:08:51 11/25/19 25 11/27/2024 COMP. METAB OLIC PANEL (14) ALT (SGPT) 25 IU/L 0-32 Not Available [facility] ([facility]) [address] [facility] [place], [address], 12/01/2024 09:08:51 11/25/19 25 11/27/2024 HOMOC Y+MET HYL homocyst(E)i ne 17.6 umol/ L 0.0-14 .5 above high normal Not Available [facility] ([facility]) [address] [facility] [place], [address], 12/01/2024 09:08:52 11/25/19 25 12/01/2024 HOMOC Y+MET HYL methylmaloni c acid, serum 254 nmol/ L 0-378 Not Available [facility] ([facility]) [address] [place], [address], 12/01/2024 09:08:52 11/25/19 25 11/26/2024 VITAM IN B12+F OLATE vitamin B12 275 pg/mL 232-12 45 Not Available [facility] ([facility]) [address] [facility], [place], [address], 12/01/2024 09:08:53 11/25/1911/26/2024 VITAM IN B12+F OLATE folate (folic acid), serum 4.2 NG/mL >3.0 A serum folat e you ntrat ion of less than 3.1 ng/mL is consi dered to repre sent clini taco defic iency . Not Available [facility] ([facility]) [address] [place], [address], 12/01/2024 09:08:53 11/25/1911/26/2024 IRON AND TIBC iron bind.cap.(TI BC) 270 ug/dL 250-45 0 Not Available [facility] ([facility]) [address] [place], [address], 12/01/2024 09:08:54 11/25/19 25 11/26/2024 IRON AND TIBC UIBC 168 ug/dL 131-42 5 Not Available [facility] ([facility]) [address] [place], [address], 12/01/2024 09:08:54 11/25/19 25 11/26/2024 IRON AND TIBC iron 102 ug/dL 27-159 Not Available [facility] ([facility]) [address] [place], [address], 12/01/2024 09:08:54 11/25/19 25 11/26/2024 IRON AND TIBC iron saturation 38 % 15-55 Not Available [facility]) [address] [facility], [place], [address], 12/01/2024 09:08:54 11/25/19 25 11/26/2024 HEMOG LOBIN A1C hemoglobin A1C 5.7 % 4.8-5. 6 above high normal Predi abete s: 5.7 - 6.4 Diabe miri: >6.4 Glyce thuan contr ol for adult s with diabe miri: <7.0 Not Available [facility] ([facility]) [address] [facility], [place], [address], 12/01/2024 09:08:55 11/25/19 25 11/27/2024 INSUL IN insulin 23.0 uIU/m L 2.6-24 .9 Not Available [facility] ([facility]) [address] [place], [address], 12/01/2024 09:08:56 11/25/19 25 11/26/2024 SUNITHA TIN ferritin 52 NG/mL 15-150 Not Available [facility] ([facility]) [address] [facility], [place], [address], 12/01/2024 09:08:58 11/25/19 25 11/26/2024 CBC WITH DIFFE RENTI AL/PL ATELE T WBC 9.5 x10e3 /uL 3.4-10 .8 Not Available [facility] ([facility]) [address] [place], [address], 12/01/2024 09:08:59 11/25/19 25 11/26/2024 CBC WITH DIFFE RENTI AL/PL ATELE T RBC 4.70 x10e6 /uL 3.77-5 .28 Not Available [facility] ([facility]) [address] [place], [address], 12/01/2024 09:08:59 11/25/19 25 11/26/2024 CBC WITH DIFFE RENTI AL/PL ATELE T hemoglobin 14.1 g/dL 11.1-1 5.9 Not Available [facility] ([facility]) [address] [facility], [place], [address], 12/01/2024 09:08:59 11/25/19 25 11/26/2024 CBC WITH DIFFE RENTI AL/PL ATELE T hematocrit 43.2 % 34.0-4 6.6 Not Available [facility] ([facility]) [address] [facility], [place], [address], 12/01/2024 09:08:59 11/25/1911/26/2024 CBC WITH DIFFE RENTI AL/PL ATELE T MCV 92 fL 79-97 Not Available [facility] ([facility]) [address] [facility], [place], [address], 12/01/2024 09:08:59 11/25/1911/26/2024 CBC WITH DIFFE RENTI AL/PL ATELE T MCH 30.0 pg 26.6-3 3.0 Not Available [facility] ([facility]) [address] [place], [address], 12/01/2024 09:08:59 11/25/1911/26/2024 CBC WITH DIFFE RENTI AL/PL ATELE T MCHC 32.6 g/dL 31.5-3 5.7 Not Available [facility] ([facility]) [address] [place], [address], 12/01/2024 09:08:59 11/25/1911/26/2024 CBC WITH DIFFE RENTI AL/PL ATELE T RDW 12.2 % 11.7-1 5.4 Not Available [facility] ([facility]) [address] [place], [address], 12/01/2024 09:08:59 11/25/19 25 11/26/2024 CBC WITH DIFFE RENTI AL/PL ATELE T platelets 223 x10e3 /uL 150-45 0 Not Available [facility] ([facility]) [address] [facility], [place], [address], 12/01/2024 09:08:59 11/25/19 25 11/26/2024 CBC WITH DIFFE RENTI AL/PL ATELE T neutrophils 69 % notest ab. Not Available [facility] ([facility]) [address] [facility], [place], [address], 12/01/2024 09:08:59 11/25/19 25 11/26/2024 CBC WITH DIFFE RENTI AL/PL ATELE T lymphs 22 % notest ab. Not Available [facility] ([facility]) [address] [facility], [place], [address], 12/01/2024 09:08:59 11/25/19 25 11/26/2024 CBC WITH DIFFE RENTI AL/PL ATELE T monocytes 6 % notest ab. Not Available [facility] ([facility]) [address] [facility], [place], [address], 12/01/2024 09:08:59 11/25/19 25 11/26/2024 CBC WITH DIFFE RENTI AL/PL ATELE T eos 2 % notest ab. Not Available [facility] ([facility]) [address] [facility], [place], [address], 12/01/2024 09:08:59 11/25/19 25 11/26/2024 CBC WITH DIFFE RENTI AL/PL ATELE T basos 1 % notest ab. Not Available [facility] ([facility]) [address] [facility], [place], [address], 12/01/2024 09:08:59 11/25/19 25 11/26/2024 CBC WITH DIFFE RENTI AL/PL ATELE T neutrophils (absolute) 6.7 x10e3 /uL 1.4-7. 0 Not Available [facility] ([facility]) [address] [facility], [place], [address], 12/01/2024 09:08:59 11/25/19 25 11/26/2024 CBC WITH DIFFE RENTI AL/PL ATELE T lymphs (absolute) 2.1 x10e3 /uL 0.7-3. 1 Not Available [facility] ([facility]) [address] [facility], [place], [address], 12/01/2024 09:08:59 11/25/19 25 11/26/2024 CBC WITH DIFFE RENTI AL/PL ATELE T monocytes(ab solute) 0.5 x10e3 /uL 0.1-0. 9 Not Available [facility] ([facility]) [address] [facility], [place], [address], 12/01/2024 09:08:59 11/25/19 25 11/26/2024 CBC WITH DIFFE RENTI AL/PL ATELE T eos (absolute) 0.2 x10e3 /uL 0.0-0. 4 Not Available [facility] ([facility]) [address] [facility], [place], [address], 12/01/2024 09:08:59 11/25/19 25 11/26/2024 CBC WITH DIFFE RENTI AL/PL ATELE T baso (absolute) 0.1 x10e3 /uL 0.0-0. 2 Not Available [facility] ([facility]) [address] [facility], [place], [address], 12/01/2024 09:08:59 11/25/19 25 11/26/2024 CBC WITH DIFFE RENTI AL/PL ATELE T immature granulocytes 0 % notest ab. Not Available [facility] ([facility]) [address] [facility], [place], [address], 12/01/2024 09:08:59 11/25/19 25 11/26/2024 CBC WITH DIFFE RENTI AL/PL ATELE T immature grans (abs) 0.0 x10e3 /uL 0.0-0. 1 Not Available [facility] ([facility]) [address] [facility], [place], [address], 12/01/2024 09:08:59 11/25/1911/26/2024 SEDIM ENTAT ION RATE- WESTE RGREN sedimentatio n rate-westerg derrick 10 mm/HR 0-32 Not Available [facility] ([facility]) [address] [facility], [place], [address], 12/01/2024 09:09:00 11/25/1911/26/2024 C-ARIANNA CTIVE PROTE IN, QUANT C-reactive protein, quant 5 mg/L 0-10 Not Available [facility] ([facility]) [address] [facility], [place], [address], 12/01/2024 09:09:02 11/25/1911/26/2024 VITAM IN D, 25-HY DROXY vitamin D, 25-hydroxy 16.8 NG/mL 30.0-1 00.0 below low normal Vitam in D defic iency has been defin ed by the Insti tute of Medic ine and an Endoc rine Socie ty pract ice guide line as a level of serum 25-OH vitam in D less than 20 ng/mL (1,2) . The Endoc rine Socie ty went on to furth er defin e vitam in D insuf ficie ncy as a level betwe en 21 and 29 ng/mL (2). 1. IOM (Inst itute of Medic ine). 2010. Dieta ry refer ence katty es for calci um and D. María reza [place]: The Natio nal [facility] Press . 2. Nery khan MF, Bink[place] ey [place], Gilda off-F errar i BENITEZ, et al. Evalu ation , treat ment, and preve ntion of vitam in D defic iency : an Endoc rine Socie ty clini taco pract ice guide line. JCEM. 2010; 96(7) :1911 -30. Not Available [facility] ([facility]) [address], [place], [address], 12/01/2024 09:09:03 09/07/20 24 09/07/2024 MRI, brain , w/wo contr ast No observ ation record ed. [email or web address] [facility] [address] [place], [address], 09/07/2024 21:34:19 Result Notes None recorded. Problems Name Problem SNOMED Code Status Onset Date Resolution Date Notes Provider Name and Address Organization Details Recorded Time Body mass index 30+ - obesity 598185235 Active 024 Tarsha Santos MA null, [place] - [facility] 4 09:25:13 Obesity 739443815 Active 024 JAJA Martel Attn: Accounting ,[address] [place], [address] , [facility] - SI 4 09:39:44 Sleep disorder 84321833 Active 024 JAJA Martel Attn: Accounting ,[address] [place], [address] , [facility] - SIF 4 09:24:12 Multiple joint pain 06123232 Active 024 JAJA Martel Attn: Accounting ,[address] [place], [address] , [place] - [facility] 4 09:24:14 Problem Notes None recorded. Procedures Surgical History Date Name Laterality Status Provider Name and Address Organization Details Recorded Time 4 Tubal Ligation completed Tarsha Santos MA [place] - [facility] 10/05/2024 09:21:25 ovarian ablation completed Tarsha Santos MA [place] - [facility] 10/05/2024 09:21:18 Imaging Results Imaging Date Name Status LastModified by Organiz ation Details LastModified Time 09/07/2024 MRI, brain, w/wo contrast completed [email or web address] [facility] [id number], [place], [address], 09/07/2024 21:34:19 Procedure Notes None recorded. Medical Equipment None Reported. Allergies No known drug allergies Medications Name Sig Start Date Stop Date Status Note LastModified by Organization Details LastModified Time trazodone 50 mg tablet take 1-2 tabs po qhs 2023 active Not Available Not Available Not Avai lable cetirizine 10 mg tablet TAKE 1 TABLET BY MOUTH ONCE DAILY FOR ALLERGY SYMPTOMS 10/05 completed Not Available Not Available Not Available hydrocodone 5 mg-acetamin ophen 325 mg tablet TAKE 1 TABLET BY MOUTH EVERY 8 HOURS NEEDED FOR PAIN 10/05 completed Not Available Not Available Not Available Medrol (Dino) 4 mg tablets in a dose pack take as directed 12/16 completed Not Available Not Available Not Available prednisone 20 mg tablet TAKE 2 TABLETS BY MOUTH ONCE DAILY FOR 5 DAYS active Not Available Not Available No t Available phentermine 37.5 mg tablet Take 1 tablet by mouth once daily active Not Available Not Available No t Available amoxicillin 875 mg tablet TAKE 1 TABLET BY MOUTH EVERY 12 HOURS FOR 7 DAYS 10/05 completed Not Available Not Available Not Available ergocalcife rol (vitamin D2) 1,250 mcg (50,000 unit) capsule TAKE 1 CAPSULE BY MOUTH ONCE A WEEK active Not Available Not Available No t Available ibuprofen 600 mg tablet TAKE 1 TABLET BY MOUTH THREE TIMES DAILY 10/05 completed Not Available Not Available Not Available cefdinir 300 mg capsule TAKE 1 CAPSULE BY MOUTH EVERY 12 HOURS active Not Available Not Available No t Available fluticasone propionate 50 mcg/actuati on nasal spray,suspe nsion USE 1 SPRAY(S) IN EACH NOSTRIL TWICE DAILY 10/05 completed Not Available Not Available Not Available nitrofurant oin monohydrate /macrocryst als 100 mg capsule TAKE 1 CAPSULE BY MOUTH EVERY 12 HOURS active Not Available Not Available No t Available Vitals Date Recorded Body weight Body mass index (BMI) Body height Respiratory rate Oxygen saturation Oxygen saturation in Arterial blood by Pulse oximetry Heart rate Systolic blood pressure Diastolic blood pressure Provider Name and Address Organization Details Last Updated DateTime 035792. 97 g 36 kg/m2 175.26 cm 20 /min 98 % 98 % 80 /min 130 mm[Hg] 78 mm[Hg] Tarsha Santos MA [facility] 15:23:54 Date Recorded Body height Body mass index (BMI) Body weight Oxygen saturation Oxygen saturation in Arterial blood by Pulse oximetry Heart rate Systolic blood pressure Diastolic blood pressure Provider Name and Address Organization Details Last Updated DateTime 175.26 cm 34.9 kg/m2 149039. 8 g 98 % 98 % 70 /min 128 mm[Hg] 82 mm[Hg] Tarsha Santos MA [facility] 09:23:43 Date Recorded Systolic blood pressure Diastolic blood pressure Provider Name and Address Organization Details Last Updated DateTime 10/05/2024 120 mm[Hg] 80 mm[Hg] JAJA Martel Attn: Accounting,[address] [place], [address], [facility] 10/05/2024 09:40:47 Social History Question Answer Notes LastModified by Organizat ion Details LastModified Time Tobacco Smoking Status Never Smoker Tarsha Santos MA null, [facility] 03/03/2024 15:20:49 Do You Have An Advance Directive? No Information n ot available 10/05/2024 What Is Your Level Of Alcohol Consumption? None Information not available 03/03/2024 Are You Blind Or Do You Have Difficulty Seeing? No Information n ot available 03/03/2024 What Is Your Level Of Caffeine Consumption? Moderate Information not available 03/03/2024 In The 14 Days Before Symptom Onset, Have You Had Close Contact With A Laboratory-confirm ed COVID-19 While That Case Was Ill? No Information n ot available 03/03/2024 In The 14 Days Before Symptom Onset, Have You Had Close Contact With A Person Who Is Under Investigation For COVID-19 While That Person Was Ill? No Information not available 03/03/2024 Have You Been To An Area Known To Be High Risk For COVID-19? No Information not available 03/03/2024 Are You Currently Employed? Yes Information not available 03/03/2024 Are You Deaf Or Do You Have Serious Difficulty Hearing? No Information not available 03/03/2024 What Type Of Diet Are You Following? REGULAR Information n ot available 03/03/2024 Are There Any Guns Present In Your Home? No Information not available 03/03/2024 What Was The Date Of Your Most Recent Tobacco Screening? 10/05/2024 Information not available 10/05/2024 What Is Your Relationship Status? Domestic Partner Information not available 10/05/2024 Do You Use Your Seat Belt Or Car Seat Routinely? Yes Information not available 03/03/2024 Do You Have Smoke And Carbon Monoxide Detectors In Your Home? Yes Information not available 03/03/2024 Do You Feel Stressed (tense, Restless, Nervous, Or Anxious, Or Unable To Sleep At Night)? [id number] Information not available 03/03/2024 Do You Use Any Illicit Or Recreational Drugs? No Information not available 03/03/2024 Do You Use Sunscreen Routinely? Yes Information not available 03/03/2024 Has Tobacco Cessation Counseling Been Provided? Yes Information not available 03/03/2024 On What Date Was Tobacco Cessation Counseling Provided? 10/05/2024 Information not available 10/05/2024 Do You Or Have You Ever Used Any Other Forms Of Tobacco Or Nicotine? No Information not available 03/03/2024 Sex: Female Functional Status Question Answer Note LastModified by Organization D etails LastModified Time Are you able to care for yourself? Yes Information not available 03/03/2024 What is your exercise level? Moderate Information not available 03/03/2024 Mental Status None recorded. Family History Relationship Description Onset Age of this Age Resolved Age Notes LastModified by Organization Details LastModified Time Brother Asthma [email or web address] Not available 10/05/2024 09:27:34 Brother Attention deficit hyperactivit y disorder tcarterma Not available 10/05 09:27:44 Sister Attention deficit hyperactivit y disorder tcarterma Not available 10/05 09:27:44 Medical History No medical history recorded. Gynecological History Statement/Question Response Flow Heavy Date of LMP 06/16/2024 Frequency of Cycle (Q days) 28 Menses Monthly Y Duration of Flow (days) 6 Current Control Method Tubal Ligat ion LMP Approximate Obstetrics History GPAL:G 1 P 1 0 0 1 Type Value Full Term 1 Induced 0 Spontaneous 0 Premature 0 Living 1 Total 1 Past Encounters Encounter ID Performer Location Encounter Start Date Encounter Closed Date Diagnosis/Indication Diagnosis SNOMED-CT Code Diagnosis ICD10 Code Diagnosis Note [id number] [facility] ([email or web address]) [address] [place] [address] 03/03/2024 15:00:17 03/03/2024 15:51:34 Butterfly rash 10523539 R21 Check OTONIEL w/multiple x panel Menorrhagia 277755347 N9 2.0 Heavy menstrual cycles reported. check CBC and iron studies. Cholesterol screening 27 0998951 Z13.220 fasting lipids due Diabetes m ellitus screening 624770651 Z13.1 a1c screening due Body mass index 30+ - obesity 361132051 Z68.36 fasting insulin lab due. Fatigue 27411296 R53.83 sleep study a year or two ago did not show any apnea. Recheck B12, folate, vit D, cmp and start phentermin e trial to help with fatigue and weight. Multiple joint pain 3567 8005 M25.50 check full RA panel, ESR, CRP labs Paresthesia 73393267 R20 .2 refer for MRI brain w/wo contrast for persistent paresthesi as noted. Refer to Neurology as she has a myriad of neurologic symptoms that are frequent. Sleep disorder 52150921 G47.9 Start trazodone 50-100mg qhs [id number] [facility] [employer] [address] [place] [address] 10/05/2024 09:16:40 10/05/2024 09:46:08 Body mass index 30+ - obesity 252263752 Z68.34 BMI is 34.9 Obesity 488514310 E66.9 discussed healthy diet, exercise, controllin g carbohydra miri and added sugars in the diet Butterfly rash 69237213 R21 Patient did not complete her labs that were ordered in the spring so we are reordering everything . Paresthesia 45333380 R20 .2 pt has persistent paresthesi as noted. saw neurology once and MRI brain from them was negative. she does need to f/u with them. she has had some numbness around mouth more recent episode that was new and lasted 30 min. Multiple joint pain 3567 8005 M25.50 Multiple joint pain continues to be a problem for the patient. She has seen Rheumatolo gy in the past with no clear diagnoses. Repeat rheumatoid panel as well as sed rate and C-reactive protein Fatigue 89108327 R53.83 Patient did not complete the labs that were ordered in the spring so those are being reordered Sleep disorder 54746979 G47.9 trazodone 50-100mg qhs, dose refilled Pain of ri ght shoulder joint [id number] 7864409 M25.511 1 month of symptoms now. no known injury. daily pain. ROM is limited. Start Medrol Dosepak Menorrhagia 544784667 N9 2.0 Patient had hysterosco py with ablation in August for menorrhagi a. We will also check repeat CBC and iron studies and thyroid Cholesterol screening 27 2330826 Z13.220 fasting lipids due Diabetes m ellitus screening 233053125 Z13.1 a1c screening due Health Concerns Section Related Observation LastModified by Organization Detai ls LastModified Time None Recorded Concern Status LastModified by Organization Details LastModified Time None Recorded Advance Directives Directive N: Payers Encounter Date Sequence Insurance Name Policy Number Policy Mccall Covered Member ID Mccall Member ID Guarantor Name 03/03/2024 1 [employer] [id number] Corrine Robertson [id number] Corrine Roebrtson 10/05/2024 1 [employer] [id number] Corrine Robertson [id number] Corrine Robertson Notes Date Note Type Note Provider Name and Address Organization Details Recorded Time 03/03/2024 text/html Generic HPI TemplateReported bypatient.Notes:butter fly rash at times; hands feet and legs with pins and needles often. electric shock feeling throughout body like a rubber band hitting her on her inside Had an episode of tripping on a crack in concrete and body went stiff .Dreaming is very vivid right now, and feeling exhausted in the morning like she's not rested.Hx of sleep study normal at last office.Fatigue is awful 24/7Eye twitching randomly now.Difficulty telling difference between hot and very hot temperature.Brain fog and forgetfulness.Heavy menstrual cycles.Cramps and muscle spasms in hands and feet.Pt's sister has DICK, depression, anxiety, ptsd, MVP, fibromyalgia, endometriosis.Pt's mother has CVD, RayMAYELIN caro , of stroke at 61. JAJA Martel Attn: Accounting,[address] [facility], [place], [address], [facility] 03/07/2024 09:07:22 10/05/2024 text/html Generic HPI TemplateReported bypatient.Notes:Past medical history remains the same with no changes.Butterfly rash at times; hands feet and legs with pins and needles often. electric shock feeling throughout body like a rubber band hitting her on her inside Had an episode of tripping on a crack in concrete and body went stiff .Dreaming is very vivid right now, and feeling exhausted in the morning like she's not rested.Hx of sleep study normalFatigue is awful 24/7Eye twitching randomly now.Difficulty telling difference between hot and very hot temperature.Brain fog and forgetfulness.Cramps and muscle spasms in hands and feet.Pt's sister has DICK, depression, anxiety, ptsd, MVP, fibromyalgia, endometriosis.Pt's mother has CVD, MAYELIN Varela , of stroke at 61. JAJA Martel Attn: Accounting,[address] [facility], [place], [address], [facility] 10/10/2024 09:28:20 OBGyn Episode No OBEpisode recorded.
[2025-02-11] MEDS: HYDROmorphone HCL INJ (*CRX) 1 MG/ML SYR IV PUSH (13:27)
[2025-02-11] MEDS: ONDANSETRON INJ 4 MG/2 ML VIAL IV PUSH (13:27)
--- NOTE | 2025-02-11 14:43 | PC.NURSE ---
10mg of Etomidate given for Moderate sedation r/t left ankle dislocation.
--- NOTE | 2025-02-11 15:05 | ED_ITS ---
HPI - Extremity Injury (Lower) General Chief Complaint: Extremity Injury, Lower Stated Complaint: ankle pain Time Seen by Provider: 02/11/25 13:12 Source: patient and family Mode of arrival: wheelchair Limitations: no limitations History of Present Illness HPI Narrative: 39-year-old otherwise healthy here with a complains of bilateral ankle pain. Patient states that she slipped and fell while she was coming out of the house she is unable to bear weight on the left ankle she denies any head and neck injuries MD complaint: ankle injury (left) and foot injury (left) Onset (ago): hour(s) (1) Type of Injury: unknown Place: home Severity: moderate Relieving factors: immobilization Exacerbating factors: weight bearing and movement Associated symptoms: snap/pop sensation and swelling Other symptoms: none Related Data Home Medications ?Medication ?Instructions ?Recorded ?Confirmed ?Last Taken ?Type ergocalciferol (vitamin D2) 1,250 1,250 mcg 12/14/24 Unknown History mcg (50,000 unit) capsule Allergies Allergy/AdvReac Type Severity Reaction Status Date / Time No Known Allergies Allergy Verified 02/11/25 12:53 Review of Systems Review of Systems: All systems reviewed & are unremarkable except as noted in HPI and below Constitutional: Constitutional: Reports no additional constitutional complaints Eyes: Eyes: Reports no additional eye complaints ENT: Reports system reviewed and no additional complaints, except as documented Cardiovascular: Cardiovascular: Reports no additional cardiovascular complaints Respiratory: Respiratory: Reports no additional respiratory complaints Gastrointestinal: Gastrointestinal: Reports no additional gastrointestinal complaints Musculoskeletal: Musculoskeletal: Reports as per HPI Neurologic: Reports system reviewed and no additional complaints, except as documented [facility] Past Medical History Medical History Insomnia Acne Obesity Kidney stones Migraines Depression Anxiety Female hirsutism Impaired glucose tolerance Surgical History Surgical History H/O bilateral salpingectomy (08/18/24) pathology benign Family History Family History Mother Diabetes mellitus Cerebrovascular accident Hypertension Heart disease Cirrhosis of liver Grandparent Breast cancer maternal grandmother Other Carcinoma of colon Social History Social History Smoking status: Never smoker Second hand tobacco smoke exposure: No Alcohol intake: never Substance use: never Substance use type: does not use Do You Feel Safe in your Home?: Yes Lack of Transportation: No Lack of Food: Never True Current Housing: I Have Housing Concerned About Future Housing: No Difficulty Paying Gas/Electric Bills: Decline to Answer Difficulty Paying for Meds: No Education: Associate Degree Difficulty w/ Childcare or Family Care: No Living arrangements: with family Additional living arrangements comments: with son and S/O Occupation/Education: occupation Gender identity (if verbalized by the patient): Female Spiritual care concerns: No Exam Narrative: GENERAL: Well-appearing, well-nourished, and moderate amount of pain HEAD: Normocephalic, atraumatic. EYES: PERRLA and EOMI. ENT: Nares clear, no rhinorrhea or epistaxis. Mucous membranes moist. NECK: Supple. CHEST: Clear to auscultation. No respiratory distress. HEART: Regular rate and rhythm. No murmur heard. Normal peripheral pulses. ABDOMEN: Soft, nontender, nondistended, normal active bowel sounds. EXTREMITIES: Normal range of motion. Left ankle deformity , good pulse SKIN: Warm, dry, no rash. NEURO: No focal deficits. Alert and oriented x3. PSYCH: Normal mood and affect. Course Course Emergency Course: Notified patient about her x-ray table with reduction of ankle. Patient started feeling much better reduction and was comfortable did inform her about the x-ray findings post reduction film and my discussion with the orthopedic surgeon and she feels comfortable going home. Vital Signs Vital signs: Vital Signs Temperature 36.4 C L 02/11/25 12:47 Pulse Rate 86 02/11/25 12:47 Respiratory Rate 18 02/11/25 12:47 Blood Pressure 122/79 02/11/25 12:47 Pulse Oximetry 100 02/11/25 12:47 Oxygen Delivery Room Air 02/11/25 12:47 Temperature 36.4 C 02/11/25 14:40 Pulse Rate 79 02/11/25 14:40 Respiratory Rate 15 02/11/25 14:40 Blood Pressure 116/85 02/11/25 14:40 Pulse Oximetry 100 02/11/25 14:40 Oxygen Delivery Room Air 02/11/25 14:40 Procedures Orthopedic Fracture Reduction Fracture #1: Fracture Reduction date: 02/11/25 Time Out Performed: Yes Side: left Fracture Reduction Location: other (Left ankle) Analgesia: procedural sedation Pre-Procedure Neuro Vascular Exam: normal Technique: direct manipulation Post Reduction X-rays Demonstrate: anatomical reduction Post-reduction neuro exam: intact Post-reduction vascular exam: intact Splint Applied: Yes Patient Tolerated Procedure: well Procedural Sedation Procedural Sedation #1: Provider Performed: sedation and procedure Informed Consent Obtained: yes Equipment in Room: bag and mask, capnography, veneer stacker, crash cart, oxygen, pulse oximeter and suction Plan for Sedation: moderate sedation ASA Class: I Mallampati Classification: class I NPO Status: last solid food (hours ago) (15) Explanation to Patient/Family: Risk/Benefits/Alternatives Pt. Educated on Procedural Sedation: Yes Re-evaluated immediately prior: Yes Preparation: veneer stacker applied, pulse oximeter, capnometry used and reversal agents at bedside IV Etomidate dose (mg): 10 Reversal Agents Used: none Patient Tolerated Procedure: well Complications: none Discharge Plan Discharge Clinical Impression: Ankle fracture, left Qualifiers: Encounter type: initial encounter Fracture type: closed Qualified Code(s): S82.892A - Other fracture of left lower leg, initial encounter for closed fracture Bimalleolar fracture of left ankle Qualifiers: Encounter type: initial encounter Fracture type: closed Qualified Code(s): S82.842A - Displaced bimalleolar fracture of left lower leg, initial encounter for closed fracture Patient Disposition: Home, Self-Care Condition: Stable Instructions: Ankle Fracture (DC), Moderate Sedation (ED) Additional Instructions: Keep your leg elevated while your seating please use crutches while ambulating. Fall precautions advised. Take pain medication as prescribed. Follow-up with orthopedic doctor on Thursday. Patient Language: Divehi Prescriptions: New hydrocodone-acetaminophen 5-325 mg tablet 1 tablet PO Q6H PRN (Reason: pain) Qty: 20 0RF No Action ergocalciferol (vitamin D2) 1,250 mcg (50,000 unit) capsule 1,250 mcg Follow-up/Referrals: Trixie,STEPHANIE Radford [Primary Care Provider] - Vu North MD [Physician] - Time of Disposition: 15:17
--- NOTE | 2025-02-11 16:34 | PC.NURSE ---
Verbal order received for left ankle posterior short leg splint and crutches.
== END 2025-02-11 15:47 | disposition home or self-care (01) ==
PROVIDERS: Emergency Provider Family Medicine; PCP Physician Assistant
DX: S82.892A Other fracture of left lower leg, initial encounter for closed fracture (principal); S82.842A Displaced bimalleolar fracture of left lower leg, initial encounter for closed fracture; W01.0XXA Fall on same level from slipping, tripping and stumbling without subsequent striking against object, initial encounter
CPT/HCPCS: 27840; 73610; 96374; 96375; 99285; J1171; J2405; J7030

== ENCOUNTER 2025-02-17 01:18 | Day surgery (SDC) | payer OTHER, SELFPAY ==
[2025-02-14 12:38] VITALS: BMI 32.5
--- NOTE | 2025-02-14 12:47 | PC.NURSE ---
Addendum entered by Casey Guevara RN 02/16/25 13:44: surgery 02/17/25 at 1230 arrive at 1030am follow pre op instructions . instructions givne to pt at 1344 02/16/25 CASEY GUEVARA RN Original Note: Report to the Outpatient Waiting Room, entrance under the green pavilion located off [facility], at time _1130_ on date _[id number]_. Planned Procedure Time: _130pm_.? Time changes happen often and if your time is changed the preop area will call you the afternoon before. - You and your visitor will be asked to self-screen and do not enter if you have any COVID symptoms. Please call surgeon if you need to reschedule. - A mask is optional within the hospital at this time. Patients may have clear liquids (water, carbonated beverages, clear teas, apple juice) until 3 hours prior to surgery with a maximum of 20 ounces. - No food from midnight until time of surgery and no smoking, or chewing tobacco (or any form of nicotine). No chewing gum, candy or mints. Take only the following medications with a SIP of water on the morning of surgery: __Hydrocodone DO NOT STOP ANY OF YOUR OTHER PRESCRIPTION MEDICATIONS PRIOR TO SURGERY EXCEPT THE FOLLOWING Hold all vitamins and supplements for 3 days per anesthesiologist. Medications to discontinue per physician ___Please call and ask Dr North's office if OK to keep taking Ibuprofen. Date to take last dose Please no make-up, nail sinhala, hairspray, perfume, deodorant, or body powder the day of surgery.? No jewelry (including any body piercings) or valuables the day of surgery, leave them at home.? Please take a shower or bath the night before, or the morning of, surgery with an antibacterial soap.? Wear comfortable, loose fitting clothing.? - Jewelry must be removed prior to entering the operating room.? Rings and piercings that are not removed may be cut off. - The hospital will not accept responsibility for valuables.? - Please leave all valuables, including medications, at home the day of surgery. If you are going home after surgery, a licensed driver messenger must drive you home.? - NO public transportation without another adult if you receive anesthesia. - We recommend that an adult stay with you for 24 hours following discharge. - We also recommend that you do not drive, make important decision, drink alcoholic beverages, or take any drugs that were not prescribed by your health care provider for at least 24 hours after your discharge time. Follow any additional instructions given to you from your surgeon. Telephone instructions given to __Staci___and asked if any additional questions and then verbalized understanding. Patient advised to call surgeon office or pre surgery nurse liaison [phone] if any additional questions.
--- OUTSIDE RECORDS SUMMARY | 2025-02-16 01:39 | XMS_ITS | Referral Summary ---
Author Organization [facility] Address [address] [place] [address] Care Team Providers Care Heel Gouger Name Role Phone Farrah Marcumedis [facility] Primary Care Pr ovider Gopi Hanks MD Unavailable [phone] Allergies No known active allergies Medications metFORMIN [...] Hanks. Assessment & Plan (12/30/2021 5:10 PM ROLLER PAINTER): 36-year-old female presenting with PMHx migraines and [...] on file Legal Sex Female 5:01 PM ROLLER PAINTER Gender Identity Not on file Sexual Orientation Not on file Last Filed Vital Signs Vital Sign Reading Time Taken Comments Blood Pressure 130/84 12/30/2021 2:15 PM ROLLER PAINTER Pulse 67 12/30/2021 2:15 PM ROLLER PAINTER Temperature 36.8 C (98.2 F) 01/20/2022 1:03 PM CDT Respiratory Rate - - Oxygen Saturation 98% 12/30/2021 2:15 PM ROLLER PAINTER Inhaled Oxygen Concentration - - Weight 112.1 kg (247 lb 3.2 oz) 01/20/2022 1:03 PM CDT Height 170.2 cm (5' 7 ) 02/10/2017 1:26 PM CDT Body Mass Index 38.72 02/10/2017 1:26 PM CDT Plan of Treatment Not on file Insurance [employer] Care Teams Heel Gouger Relationship Specialty Start Date End Date Malina Marcum PA PCP - General 02/06/17 Gopi Hanks MD [address] [place] [address] Consulting Physician Rheumatology 11/19/21
--- OUTSIDE RECORDS SUMMARY | 2025-02-16 01:39 | XMS_ITS | Encounter Summary ---
Author Organization [facility] Address [address] [place] [address] Care Team Providers Care Steward/Stewardess Banquet Name Role Phone Malina Marcum Primary Care Provider [phone] Encounter Details Date Type Department Care Team (Latest Contact Info) Description 02/14/2025 2:25 PM CDT - 02/14/2025 11:59 PM CDT Hospital Encounter [facility] [address] [place], [place] [id number] Vu North MD [address] [place] [facility] 1 [place], [place] [id number] Arrived Discharge Disposition: Home or Self Care (Routine Discharge) Social History Tobacco Use Types Packs/Day Years Used Date Smoking Tobacco: Never Smokeless Tobacco: Never Alcohol Use Standard Drinks/Week Comments Not Currently 0 (1 standard drink = 0.6 oz pur e alcohol) PHQ-2 Answer Date Recorded Patient Health Questionnaire-2 Score 0 08/08/2024 Comments No Sex and Gender Information Value Date Recorded Sex Assigned at Not on file Legal Sex Female 9:27 AM CDT Gender Identity Not on file Sexual Orientation Not on file documented as of this encounter Plan of Treatment Upcoming Encounters Date Type Department Care Team (Late st Contact Info) Description 02/22/2025 10:20 AM CDT Office Visit [facility] - [address], [address] [place] [address] Dary Fileds MD [address] [place] [address] documented as of this encounter Procedures Procedure Name Priority Date/Time Associated Diagnosis Comments COMPREHENSIVE METABOLIC PANEL Routine 02/14/2025 2:46 PM CDT Pre-op testing CBC, AUTO, NO DIFF Routine 02/14/2025 2: 46 PM CDT Pre-op testing documented in this encounter Results * (ABNORMAL) CBC, AUTO, NO DIFF (02/14/2025 2:46 PM CDT) WBC 11.29(H) 4.4 - 11.0 x10'3/uL 02/14/2025 3:04 PM CDT [facility] RBC 4.67 4.50 - 5.10 x10'6/uL 02/14/2025 3:04 PM CDT [facility] HGB 14.4 12.3 - 15.3 G/DL 02/14/2025 3:04 PM CDT [facility] HCT 41.7 35.9 - 44.6 % 02/14/2025 3:04 PM CDT [facility] MCV 89.3 80.0 - 96.0 FL 02/14/2025 3:04 PM CDT [facility] MCH 30.8 25.3 - 30.9 PG 02/14/2025 3:04 PM CDT [facility] MCHC 34.5(H) 31.0 - 34.1 G/DL 02/14/2025 3:04 PM CDT [facility] RDW 12.2(L) 12.4 - 15.1 % 02/14/2025 3:04 PM CDT [facility] PLT 217 151 - 353 x10'3/uL 02/14/2025 3:04 PM CDT [facility] MPV 10.9 9.6 - 12.0 FL 02/14/2025 3:04 PM CDT [facility] 02/14/2025 2:46 PM CDT us Vu North MD LABORATORY Final Result [facility] [address] [place] [address], * (ABNORMAL) COMPREHENSIVE METABOLIC PANEL (02/14/2025 2:46 PM CDT) GLUCOSE 156(H) 70 - 99 MG/DL 02/14/2025 3:34 PM CDT [facility] BUN 8 7 - 18 MG/DL 02/14/2025 3:34 PM CDT [facility] CREATININE S/P/B 0.71 0.55 - 1.02 MG/DL 02/14/2025 3:34 PM CDT [facility] SODIUM S/P/B 139 136 - 145 MMOL/L 02/14/2025 3:34 PM CDT [facility] POTASSIUM S/P/B 3.6 3.5 - 5.1 MMOL/L 02/14/2025 3:34 PM CDT [facility] CHLORIDE S/P/B 104 100 - 108 MMOL/L 02/14/2025 3:34 PM CDT [facility] CO2 26.2 21 - 32 MMOL/L 02/14/2025 3:34 PM CDT [facility] CALCIUM S/P/B 9.2 8.5 - 10.1 MG/DL 02/14/2025 3:34 PM CDT [facility] BILIRUBIN TOTAL S/P/B 0.5 0.2 - 1.2 MG/DL 02/14/2025 3:34 PM CDT [facility] TOTAL PROTEIN S/P/B 7.4 6.4 - 8.2 G/DL 02/14/2025 3:34 PM T [facility] ALBUMIN S/P/B 3.3(L) 3.4 - 5.0 G/DL 02/14/2025 3:34 PM T [facility] AST 26 15 - 37 U/L 02/14/2025 3:34 PM T [facility] ALT 43 14 - 55 U/L 02/14/2025 3:34 PM T [facility] ALKALINE PHOSPHATASE S/P/B 61 50 - 136 U/L 02/14/2025 3:34 PM T [facility] ANION GAP 8.8 5 - 15 MMOL/L 02/14/2025 3:34 PM T [facility] BUN CREATININE RATIO 11.3 6 - 26 02/14/2025 3:34 PM T [facility] A/G RATIO 0.8(L) 1.0 - 2.0 RATIO 02/14/2025 3:34 PM [facility] GFR ESTIMATE >90 >90 ML/MIN/1.7 3 M2 02/14/2025 3:34 PM T [facility] Comment: NOTE: eGFR is not calculated for patients <18 years of age. This is an estimated GFR calculation using the new CKD EPI creatinine equation without race and so does not require a correction factor for race. This estimated GFR should not be used for calculating drug doses. 02/14/2025 2:46 PM CDT us Vu North MD LABORATORY Final Result [facility] [address] [place] [address], [place] [phone] documented in this encounter Visit Diagnoses Diagnosis Pre-op testing Preoperative examination, unspecified documented in this encounter Care Teams Steward/Stewardess Banquet Relationship Specialty Start Date End Date Malina Marcum PA [address] [place] [address] PCP - General PHYSICIAN EMBROIDERY FINISHER 06/30/21 documented as of this encounter
--- OUTSIDE RECORDS SUMMARY | 2025-02-16 01:39 | XMS_ITS | Data Portability ---
Author Organization [facility] [place], Main Office Address [address] [place] [address] Assessment No assessment recorded. Plan of Treatment Reminders Order Date Submit Date Provider Last Modified By Organization Details Last Modified Time Details Appointments None recorded. Lab TSH + free T4, serum 2022 023 [email or web address] [facility], [address] [address], [place], [address], 4 16:33:24 T3, free, serum or plasma 2022 023 [email or web address] [facility], [address] [place] [address], [place], [address], 4 16:33:24 OTONIEL (antinuclea r antibodies) screen, serum 2022 023 [email or web address] [facility], [address] [place] [address], [place], [address], 4 16:33:23 HbA1c (hemoglobin A1c), blood 2022 023 [email or web address] [facility], [address] [place] [address], [place], [address], 4 16:33:23 insulin, serum 2022 023 [email or web address] [facility], [address] [address], [place], [address], 4 16:33:22 lipid panel, serum 08/28/ 2023 08/28/2 023 [email or web address] [facility], [address] [address], [place], [address], 4 16:33:23 CMP, serum or plasma 2022 023 [email or web address] [facility], [address] [address], [place], [address], 4 16:33:23 CBC w/ auto diff 2022 023 [email or web address] [facility], [address] [place] [address], [place], [address], 4 16:33:23 iron + TIBC + ferritin, serum 2022 023 [email or web address] [facility], [address] [place] [address], [place], [address], 4 16:33:24 vitamin B12 + folate, serum or blood 2022 023 [email or web address] [facility], [address] [place] [address], [place], [address], 4 16:33:25 vitamin D, 25-hydroxy, total, serum 2022 023 [email or web address] [facility], [address] [place] [address], [place], [address], 4 16:33:25 rf (rheumatoid factor), serum 2022 023 [email or web address] [facility], [address] [place] [address] 2, [place], [address], 4 16:33:23 C reactive protein, QN, serum or plasma 2022 023 [email or web address] [facility], [address] [place] [address] 2, [place], [address], 4 16:33:24 ESR (erythrocyt e sedimentati on rate), blood 2022 023 [email or web address] [facility], [address], [place], [address], 4 16:33:24 Referral None recorded. Procedures None recorded. Surgeries None recorded. Imaging None recorded. Medication Orders phentermine 37.5 mg tablet 2022 023 [email or web address] [facility] [address], [place], [address], 3 14:15:19 Patient TargetsNo targets recorded. Patient InstructionsNo instructions recorded. Reason for Referral None Reported. Results Created Date Observation Date Name Description Value Unit Range Abnormal Flag Note LastModifiedBy Organization Detail LastModifiedTime 10/14/20 21 10/14/2021 pregn karan test, urine HCG negati ve Not Available [facility] [place] [address], [place], [address], 10/14/2021 16:39:59 11/27/19 22 11/27/2021 XR, chest , 2 view No observ ation record ed. [id number], [place], [address], 01/07/2023 07:36:21 03/19/20 22 03/07/2022 polys omnog philippe, split night No observ ation record ed. [id number] [facility]) [address] [place], [address], 01/07/2023 07:36:21 Result Notes None recorded. Problems Name Problem SNOMED Code Status Onset Date Resolution Date Notes Provider Name and Address Organization Details Recorded Time Acute sinusitis 34081533 Active 2021 Not Available [facility] 3 07:31:35 History of SARS-CoV- 2 70108899825 9476979 Active 2021 Not Available [facility] 3 07:31:35 Neck swelling 331786680 Active Not Available [facility] 3 07:31:35 Butterfly rash 03410395 Active Not Available [facility] 3 07:31:35 Multiple joint pain 51855945 Active Not Available [facility] 3 07:31:35 Night sweats 44430787 Active Not Available [facility] 3 07:31:35 Acute urinary tract infection 034280195 Active 2022 Not Available [facility] 3 07:31:36 Cough 34143226 Active Not Available [facility] 3 07:31:36 Vitamin B12 deficienc y (non anemic) 46722046 Active 2021 Not Available [facility] 3 07:31:36 Hypomenor nestor 16236045 Completed Not Available [facility] 3 07:31:36 Nasal congestio n 45449584 Active Not Available [facility] 3 07:31:36 Frontal sinusitis 51362166 Active Not Available [facility] 3 07:31:36 Irregular periods 43231341 Completed Not Available [facility] 3 07:31:36 Fatigue 61018336 Active Not Available [facility] 3 07:31:36 Maxillary sinusitis 48122289 Active Not Available [facility] 3 07:31:36 Insulin resistanc e 995716561 Active 2022 JAJA Martel [address], [address], [address] , [facility] 3 16:13:49 Impaired glucose tolerance 7224028 Active 2022 JAJA Martel [address], [address], [place], [address] , [facility] 3 16:14:30 Weight gain 0389787 Active 2022 JAJA Martel [address], [address], [place], [address] , [facility] 3 16:15:10 Vitamin D deficienc y 28950726 Active 2022 JAJA Martel [address], [address], [place], [address] , [facility] [email or web address] 3 16:16:40 Stomach cramps 10483002 Active 2022 JAJA Martel [address], [address], [place], [address] , [employer] [facility] 3 17:28:54 Notes:COVID-19 pos 11/02/21 Problem Notes None recorded. Procedures Surgical History Date Name Laterality Status Provider Name and Address Organization Details Recorded Time 08/26/2018 Date of Last Pap Smear completed Not Available [facility] 01/07/2023 07:26:54 Imaging Results Imaging Date Name Status LastModified by [facility] Details LastModified Time 03/07/2022 polysomnogr am, split night completed [id number] [facility]) [address] [place], [address], 01/07/2023 07:36:21 11/27/2021 XR, chest, 2 view completed [id number], [place], [address], 01/07/2023 07:36:21 Procedure Notes None recorded. Medical [...] month by subcutane ous route. 07/06 completed [facility] # [phone] Not Available Not Available Not [...] Updated DateTime 11/12/2021 177.8 cm Not Available [facility] 3 07:30:45 Date Recorded Body height Provider Name an d Address Organization Details Last Updated DateTime 12/02/2021 177.8 cm Not Available [facility] 3 07:30:45 Date Recorded Body height Body temperature Provider N isaak and Address Organization Details Last Updated DateTime 12/20/2021 177.8 cm 97.2 [degF] Not Available [facility] 01/07/2023 07:30:47 Date Recorded Body height Body temperature Body mass index (BMI) Body weight Respiratory rate Oxygen saturation Oxygen saturation in Arterial blood by Pulse oximetry Heart rate Systolic blood pressure Diastolic blood pressure Provider Name and Address Organization Details Last Updated DateTime 3 177.8 cm 97.7 [degF] 35.2 kg/m2 141383. 13 g 16 /min 98 % 98 % 75 /min 122 mm[Hg] 72 mm[Hg] DIXIE Rene [place] [facility] [place] [facility] 3 15:52:45 Date Recorded Systolic blood pressure Diastolic blood pressure Provider Name and Address Organization Details Last Updated DateTime 07/06/2023 120 mm[Hg] 70 mm[Hg] JAJA Martel [address], [facility] [address], [place], [address], [place] [facility] [place] [facility] 07/06/2023 16:17:29 Social History Question Answer Notes LastModified by Organizat ion Details LastModified Time Tobacco Smoking Status Never Smoker Not Available [facility] 01/07/2023 07:26:49 What Is Your Level Of Alcohol Consumption? None [id number] Information not available 01/07/2023 What Is Your Level Of Caffeine Consumption? None MIGRATION.223668 6155 Information not available 01/07/2023 How Much Tobacco Do You Chew? None MIGRATION.300689 7175 Information not available 01/07/2023 In The 14 Days Before Symptom Onset, Have You Had Close Contact With A Laboratory-confir med COVID-19 While That Case Was Ill? No MIGRATION.[id number] 0687 Information not available 01/07/2023 In The 14 Days Before Symptom Onset, Have You Had Close Contact With A Person Who Is Under Investigation For COVID-19 While That Person Was Ill? No MIGRATION.605025 6507 Information not available 01/07/2023 Are You Currently Employed? Yes [email or web address] Information not available 01/12/2023 What Type Of Diet Are You Following? REGULAR MIGRATION.117099 4451 Information not available 01/07/2023 Which Illicit Or Recreational Drugs Have You Used? None MIGRATION.200186 6190 Information not available 01/07/2023 Do You Or Have You Ever Used E-cigarettes Or Vape? 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 No MIGRATION.462364 7042 Information not available 01/07/2023 Do You Use Insect Repellent Routinely? No [email or web address] Information not available 01/12/2023 What Is Your Relationship Status? Single MIGRATION.688033 7940 Information not available 01/07/2023 Do You Use Your Seat Belt Or Car Seat Routinely? Yes MIGRATION.834537 5707 Information not available 01/07/2023 Do You Have Smoke And Carbon Monoxide Detectors In Your Home? Yes MIGRATION.349555 1345 Information not available 01/07/2023 Do You Or Have You Ever Used Smokeless Tobacco? Never Used Smokeless Tobacco MIGRATION.796223 0697 Information not available 01/07/2023 How Much Tobacco Do You Smoke? No MIGRATION.874180 3111 Information not available 01/07/2023 Do You Use Any Illicit Or Recreational Drugs? No MIGRATION.539877 7891 Information not available 01/07/2023 Do You Use Sunscreen Routinely? Yes [email or web address] Information not available 01/12/2023 Have You Recently Traveled Abroad? No MIGRATION.339078 6511 Information not available 01/07/2023 Do You Have Any Dietary Restrictions? No MIGRATION.223780 8355 Information not available 01/07/2023 Do You Or Have You Ever Used Any Other Forms Of Tobacco Or Nicotine? No MIGRATION.093376 8867 Information not available 01/07/2023 Sex: Female Functional Status Question Answer Note LastModified by [employer] ion Details LastModified Time What is your exercise level? Occasional [id number] 26 Information not available 01/07/2023 Mental Status None recorded. Family History Relationship Description Onset Age of this Age Resolved Age Notes LastModified by Organization Details LastModified Time Father Vitamin D deficiency MIGRATION.093 [id number] Not available 01/07/2023 07:26:58 Maternal Grandmother Malignant tumor of breast MIGRATION.352 [id number] Not available 01/07/2023 07:26:58 Unspecified Relation Malignant tumor of colon MIGRATION.543 [id number] Not available 01/07/2023 07:26:58 Unspecified Relation Malignant tumor of lung MIGRATION.065 6844368 Not available 01/07/2023 07:26:58 Unspecified Relation Diabetes mellitus MIGRATION.080 [id number] Not available 01/07/2023 07:26:58 Mother Diabetes mellitus MIGRATION.999 [id number] Not available 01/07/2023 07:26:58 Mother Cerebrovascu lar accident MIGRATION.539 [id number] Not available 01/07/2023 07:26:58 Mother Hypertensive disorder MIGRATION.075 [id number] Not available 01/07/2023 07:26:58 Mother Heart disease Pacema ker MIGRATION.366 9275534 Not available 01/07/2023 07:26:58 Mother Cirrhosis of liver MIGRATION.125 7745597 Not available 01/07/2023 07:26:58 Mother Raynaud's disease Not available 07/06 15:51:22 Mother Carotid artery stenosis [email or web address] Not available 07/06 15:51:56 Mother Nonalcoholic steatohepati tis [email or web address] Not available 07/06 15:54:23 Medical History Condition [...] 50 mcg/0.25mL dose 01/07/2021 completed Not Available [facility] 3 07:36:08 COVID-19, mRNA, LNP-S, PF, 100 mcg/0.5mL dose or 50 mcg/0.25mL dose 12/23/2020 completed Not Available [facility] 3 07:36:08 Past Encounters Encounter ID Performer Location Encounter Start Date Encounter Closed Date Diagnosis/Indication Diagnosis SNOMED-CT Code Diagnosis ICD10 Code Diagnosis Note [id number] [facility] [place] [address] [address], [address] [place] [address] 09/23/2021 00:00:00 10/08/2021 16:41:07 [id number] _ATHENA_M IGRATION_ DEFAULT_1 _1 , 10/14/2021 00:00:00 10/14/2021 17:21:54 [id number] [facility] [place] [address] [address], [address] [place] [address] 11/12/2021 00:00:00 12/09/2021 21:17:05 [id number] [facility] [place] [address] [address], [address] [place] [address] 11/22/2021 00:00:00 11/25/2021 13:30:26 [id number] [facility] [place] [address] JAYSHREE BARCLAY [address] 12/02/2021 00:00:00 12/08/2021 21:59:09 [id number] [facility] [place] [address] JAYSHREE BARCLAY [address] 12/20/2021 00:00:00 12/20/2021 19:10:39 [id number] JAJA Martel [facility] [place] [address] JAYSHREE BARCLAY [address] 07/06/2023 15:46:45 07/06/2023 16:25:17 Adult health examination 154490125 Z00.00 well exam completed. annual fasting labs are ordered Cholesterol screening 27 3193190 Z13.220 fasting lipids due Insulin resistance 20198 5000 E88.81 fasting insulin due Impaired g lucose tolerance 8078665 R73.03 a1c due Butterfly rash 54006219 R21 repeat OTONIEL panel multiplex Weight gain 9856732 R63. 5 screening TFTs due Multiple joint pain 3567 8005 M25.50 screening ESR, CRP and RF Fatigue 02887955 R53.83 screening iron panel and b12, folate Vitamin D deficiency 347 32279 E55.9 vit D lab due Body mass index 30+ - obesity 507565278 Z68.35 Rx for phentermin e 37.5mg daily. Health Concerns Section Related Observation LastModified by Organization Detai ls LastModified Time None Recorded Concern Status LastModified by Organization Details LastModified Time None Recorded Advance Directives Directive None Recorded Payers Encounter Date Sequence Insurance Name Policy Number Policy Mccall Covered Member ID Mccall Member ID Guarantor Name 07/06/2023 1 [facility] [employer] [facility] [id number] Corrine Robertson [id number] Corrine Robertson Notes Date Note Type Note Provider Name and Address Organization Details Recorded Time 11/12/2021 text/html Generic HPI TemplateReported bypatient.Notes:Pt is f/u w/ labs. They are in review to you. Not Available [place] [facility] [place] 12/09/2021 21:17:05 12/02/2021 text/html VomitingReported bypatient.Quality:not changing [...] hemoptysis; no dyspepsia; no allergies;fever Not Available [employer] 12/08/2021 21:59:09 07/06/2023 text/html Generic HPI TemplateReported [...] was an issue. wellness JAJA Martel [address] [facility], [facility] [address], [place], [address], [employer] 07/07/2023 14:20:27 OBGyn Episode No OBEpisode recorded.
--- OUTSIDE RECORDS SUMMARY | 2025-02-16 01:39 | XMS_ITS | Data Portability ---
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 Plan of Treatment Reminders Order Date Submit Date Provider Last Modified By Organization Details Last Modified Time Details Appointments ANY 15 2024 01:15P M JAJA Martel Not available Not available Not available Lab OTONIEL (antinucl ear antibodie s) screen, serum 2023 024 RATTAN [facility], [address], [place], [address], 12/01/2024 09:08:47 lipid panel, serum 2023 [address] [facility], [address], [place], [address], 12/01/2024 09:08:49 vitamin B12 + folate, serum or blood 2023 [address] [facility], [address], [place], [address], 12/01/2024 09:08:53 vitamin D, 25-hydrox y, total, serum 2023 [address] [facility], [address], [place], [address], 12/01/2024 09:09:03 CMP, serum or plasma 2023 024 DOM [facility], [address], [place], [address], 12/01/2024 09:08:51 CBC w/ auto diff 2023 DOM [facility], [address], [place], [address], 12/01/2024 09:08:59 iron + total iron-bind ing capacity (TIBC), serum 2023 DOM Se[facility], [address], [place], [address], 12/01/2024 09:08:54 ferritin, serum or plasma 2023 DOM Se[facility], [address], [place], [address], 12/01/2024 09:08:58 TSH + free T4, serum 2023 DOM Se[facility], [address], [place], [address], 12/01/2024 09:08:50 rf (rheumato id factor) + anti-ccp abs, serum 2023 DOM Se[facility], [address], [place], [address], 12/01/2024 09:08:46 erythrocy te sedimenta tion rate by westergre n method 2023 DOM Seaman, [address], [place], [address], 12/01/2024 09:09:00 C reactive protein, QN, serum or plasma 2023 DOM [facility], [address], [place], [address], 12/01/2024 09:09:02 HbA1c (hemoglob in A1c), blood 2023 024 DOM [facility], [address], [place], [address], 12/01/2024 09:08:55 insulin, serum 2023 024 DOM [facility], [address], [place], [address], 12/01/2024 09:08:57 OTONIEL (antinucl ear antibodie s) screen, serum 2023 024 [email or web address] [facility], [address], [place], [address], 06/02/2024 09:46:04 lipid panel, serum 2023 024 [email or web address] [facility], [address], [place], [address], 05/11/2024 10:43:33 vitamin B12 + folate, serum or blood 2023 024 [email or web address] [facility], [address], [place], [address], 05/11/2024 10:44:45 vitamin D, 25-hydrox y, total, serum 2023 024 [email or web address] [facility], [address], [place], [address], 05/11/2024 10:44:36 CMP, serum or plasma 2023 024 [email or web address] [facility], [address], [place], [address], 05/11/2024 10:44:27 CBC w/ auto diff 2023 024 [email or web address] [facility], [address], [place], [address], 05/11/2024 10:44:11 iron + total iron-bind ing capacity (TIBC), serum 2023 [email or web address] [facility], [address], [place], [address], 05/11/2024 10:43:59 ferritin, serum or plasma 2023 [email or web address] [facility], [address], [place], [address], 05/11/2024 10:43:49 TSH + free T4, serum 2023 [email or web address] [facility], [address], [place], [address], 05/11/2024 10:43:41 rf (rheumato id factor) + anti-ccp abs, serum 2023 [email or web address] [facility], [address], [place], [address], 05/11/2024 10:45:15 erythrocy te sedimenta tion rate by westergre n method 2023 [email or web address] [facility], [address], [place], [address], 05/11/2024 10:45:03 C reactive protein, QN, serum or plasma 2023 [email or web address] [facility], [address], [place], [address], 05/11/2024 10:44:54 HbA1c (hemoglob in A1c), blood 2023 [email or web address] [facility], [address], [place], [address], 05/11/2024 10:43:24 insulin, serum 2023 [email or web address] [facility], [address], [place], [address], 05/11/2024 10:43:[address] referral 2023 024 [facility], [address], [place], [address], 07/08/2024 13:42:37 Procedures None recorded. Surgeries None recorded. Imaging MRI, brain, w/wo contrast 2023 [facility], [address], [address], [place], [address], 07/08/2024 13:42:17 Medication Orders trazodone 50 mg tablet 2023 024 [facility] [address], [address], [address], 10/05/2024 09:40:37 Medrol (Dino) 4 mg tablets in a dose pack 2023 025 [facility] [address], [address], [address], 12/16/2024 12:42:25 trazodone 50 mg tablet 2023 024 [facility] [address], [address], [address], 03/03/2024 15:49:24 phentermi ne 37.5 mg tablet 2023 024 [facility] [address], [address], [address], 10/05/2024 09:20:42 Patient TargetsNo targets recorded. Patient Instructions Encounter Date Encounter Id Patient Instructions Last Modified By Organization Details Last Modified Time 10/05/2024 [id number] A healthy lifestyle: care instructions [email or web address] Not available 10/05/2024 09:40:32 Reason for Referral Neurologist Referral for Par esthesia Referring Physician: Malina Aldana, Internal Medicine, Encounter Date: 03/03/2024 Results Created Date Observation Date Name Description Value Unit Range Abnormal Flag Note LastModifiedBy Organization Detail LastModifiedTime 11/25/1911/26/2024 RHEUM ATOID ARTHR ITIS PROFI LE rheumatoid factor (rf) <10.0 IU/mL <14.0 Not Available [facility] ([facility]) [address] [place], [address], 12/01/2024 09:08:46 11/25/1911/26/2024 RHEUM ATOID ARTHR ITIS PROFI LE anti-ccp Ab, IgG/IgA 3 units 0-19 Negat ashlyn <20 Weak posit ashlyn 20 - 39 Moder ate posit ashlyn 40 - 59 Stron g posit ashlyn >59 Not Available [facility] ([facility]) [address] [place], [address], 12/01/2024 09:08:46 11/25/19 25 11/28/2024 ANTIN UCLEA R AB MULTI PLEX RFX 9 OTONIEL direct NEGATI VE negati ve Not Available [facility] ([facility]) [address] [place], [address], 12/01/2024 09:08:47 11/25/1911/27/2024 LIPID PANEL W/ CHOL/ HDL RATIO cholesterol, total 146 mg/dL 100-19 9 Not Available [facility] ([facility]) [address] [place], [address], 12/01/2024 09:08:48 11/25/19 25 11/27/2024 LIPID PANEL W/ CHOL/ HDL RATIO triglyceride s 62 mg/dL 0-149 Not Available [facility] ([facility]) [address] [place], [address], 12/01/2024 09:08:48 11/25/1911/27/2024 LIPID PANEL W/ CHOL/ HDL RATIO HDL cholesterol 38 mg/dL >39 below low normal Not Available [facility] ([facility]) [address] [place], [address], 12/01/2024 09:08:48 11/25/19 25 11/27/2024 LIPID PANEL W/ CHOL/ HDL RATIO VLDL cholesterol taco 13 mg/dL 5-40 Not Available [facility] ([facility]) [address] [place], [address], 12/01/2024 09:08:48 11/25/19 25 11/27/2024 LIPID PANEL W/ CHOL/ HDL RATIO LDL chol calc ([facility]) 95 mg/dL 0-99 Not Available [facility] ([facility]) [address] [place], [address], 12/01/2024 09:08:48 11/25/1911/27/2024 LIPID PANEL W/ CHOL/ HDL RATIO T. chol/HDL ratio 3.8 ratio 0.0-4. 4 T. Chol/ HDL Ratio Men Women 1/2 Avg.R isk 3.4 3.3 Avg.R isk 5.0 4.4 2X Avg.R isk 9.6 7.1 3X Avg.R isk 23.4 11.0 Not Available [facility] ([facility]) [address] [place], [address], 12/01/2024 09:08:48 11/25/1911/26/2024 TSH+F REE T4 TSH 2.620 uIU/m L 0.450- 4.500 Not Available [facility] ([facility]) [address] [place], [address], 12/01/2024 09:08:50 11/25/19 25 11/26/2024 TSH+F REE T4 T4,free(dire ct) 0.90 NG/dL 0.82-1 .77 Not Available [facility] ([facility]) [address] [place], [address], 12/01/2024 09:08:50 11/25/19 25 11/27/2024 COMP. METAB OLIC PANEL (14) glucose 86 mg/dL 70-99 Not Available [facility] ([facility]) [address] [place], [address], 12/01/2024 09:08:51 11/25/19 25 11/27/2024 COMP. METAB OLIC PANEL (14) BUN 6 mg/dL 6-20 Not Available [facility] ([facility]) [address] [place], [address], 12/01/2024 09:08:51 11/25/19 25 11/27/2024 COMP. METAB OLIC PANEL (14) creatinine 0.63 mg/dL 0.57-1 .00 Not Available [facility] ([facility]) [address] [place], [address], 12/01/2024 09:08:51 11/25/19 25 11/27/2024 COMP. METAB OLIC PANEL (14) eGFR 116 mL/mi n/1.7 3 >59 Not Available [facility] ([facility]) [address] [place], [address], 12/01/2024 09:08:51 11/25/19 25 11/27/2024 COMP. METAB OLIC PANEL (14) BUN/creatini ne ratio 10 9-23 Not Available [facility] ([facility]) [address] [place], [address], 12/01/2024 09:08:51 11/25/19 25 11/27/2024 COMP. METAB OLIC PANEL (14) sodium 143 mmol/ L 134-14 4 Not Available [facility] ([facility]) [address] [place], [address], 12/01/2024 09:08:51 11/25/19 25 11/27/2024 COMP. METAB OLIC PANEL (14) potassium 4.2 mmol/ L 3.5-5. 2 Not Available [facility] ([facility]) [address] [place], [address], 12/01/2024 09:08:51 11/25/19 25 11/27/2024 COMP. METAB OLIC PANEL (14) chloride 106 mmol/ L 96-106 Not Available [facility] ([facility]) [address] [place], [address], 12/01/2024 09:08:51 11/25/19 25 11/27/2024 COMP. METAB OLIC PANEL (14) carbon dioxide, total 24 mmol/ L 20-29 Not Available [facility] ([facility]) [address] [place], [address], 12/01/2024 09:08:51 11/25/19 25 11/27/2024 COMP. METAB OLIC PANEL (14) calcium 9.0 mg/dL 8.7-10 .2 Not Available [facility] ([facility]) [address] [place], [address], 12/01/2024 09:08:51 11/25/19 25 11/27/2024 COMP. METAB OLIC PANEL (14) protein, total 6.7 g/dL 6.0-8. 5 Not Available [facility] ([facility]) [address] [place], [address], 12/01/2024 09:08:51 11/25/19 25 11/27/2024 COMP. METAB OLIC PANEL (14) albumin 3.9 g/dL 3.9-4. 9 Not Available [facility] ([facility]) [address] [place], [address], 12/01/2024 09:08:51 11/25/19 25 11/27/2024 COMP. METAB OLIC PANEL (14) globulin, total 2.8 g/dL 1.5-4. 5 Not Available [facility] ([facility]) [address] [place], [address], 12/01/2024 09:08:51 11/25/19 25 11/27/2024 COMP. METAB OLIC PANEL (14) bilirubin, total 0.5 mg/dL 0.0-1. 2 Not Available [facility] ([facility]) [address] [place], [address], 12/01/2024 09:08:51 11/25/19 25 11/27/2024 COMP. METAB OLIC PANEL (14) alkaline phosphatase 67 IU/L 44-121 Not Available [facility] ([facility]) [address] [place], [address], 12/01/2024 09:08:51 11/25/19 25 11/27/2024 COMP. METAB OLIC PANEL (14) AST (SGOT) 18 IU/L 0-40 Not Available [facility] ([facility]) [address] [place], [address], 12/01/2024 09:08:51 11/25/19 25 11/27/2024 COMP. METAB OLIC PANEL (14) ALT (SGPT) 25 IU/L 0-32 Not Available [facility] ([facility]) [address] [place], [address], 12/01/2024 09:08:51 11/25/19 25 11/27/2024 HOMOC Y+MET HYL homocyst(E)i ne 17.6 umol/ L 0.0-14 .5 above high normal Not Available [facility] ([facility]) [address] [place], [address], 12/01/2024 09:08:52 11/25/19 25 12/01/2024 HOMOC Y+MET HYL methylmaloni c acid, serum 254 nmol/ L 0-378 Not Available [facility] ([facility]) [address] [place], [address], 12/01/2024 09:08:52 11/25/19 25 11/26/2024 VITAM IN B12+F OLATE vitamin B12 275 pg/mL 232-12 45 Not Available [facility] ([facility]) [address], [place], [address], 12/01/2024 09:08:53 11/25/1911/26/2024 VITAM IN B12+F OLATE folate (folic acid), serum 4.2 NG/mL >3.0 A serum folat e you ntrat ion of less than 3.1 ng/mL is consi dered to repre sent clini taco defic iency . Not Available [facility] ([facility]) [address] [place], [address], 12/01/2024 09:08:53 11/25/1911/26/2024 IRON AND TIBC iron bind.cap.(TI BC) 270 ug/dL 250-45 0 Not Available [facility] ([facility]) [address] [place], [address], 12/01/2024 09:08:54 11/25/19 25 11/26/2024 IRON AND TIBC UIBC 168 ug/dL 131-42 5 Not Available [facility] ([facility]) [address] [place], [address], 12/01/2024 09:08:54 11/25/19 25 11/26/2024 IRON AND TIBC iron 102 ug/dL 27-159 Not Available [facility] ([facility]) [address] [place], [address], 12/01/2024 09:08:54 11/25/19 25 11/26/2024 IRON AND TIBC iron saturation 38 % 15-55 Not Available [facility] ([facility]) [address], [place], [address], 12/01/2024 09:08:54 11/25/19 25 11/26/2024 HEMOG LOBIN A1C hemoglobin A1C 5.7 % 4.8-5. 6 above high normal Predi abete s: 5.7 - 6.4 Diabe miri: >6.4 Glyce thuan contr ol for adult s with diabe miri: <7.0 Not Available [facility] ([facility]) [address], [place], [address], 12/01/2024 09:08:55 11/25/19 25 11/27/2024 INSUL IN insulin 23.0 uIU/m L 2.6-24 .9 Not Available [facility] ([facility]) [address] [place], [address], 12/01/2024 09:08:56 11/25/19 25 11/26/2024 SUNITHA TIN ferritin 52 NG/mL 15-150 Not Available [facility] ([facility]) [address], [place], [address], 12/01/2024 09:08:58 11/25/19 25 11/26/2024 CBC WITH DIFFE RENTI AL/PL ATELE T WBC 9.5 x10e3 /uL 3.4-10 .8 Not Available [facility] ([facility]) [address] [place], [address], 12/01/2024 09:08:59 11/25/19 25 11/26/2024 CBC WITH DIFFE RENTI AL/PL ATELE T RBC 4.70 x10e6 /uL 3.77-5 .28 Not Available [facility] ([facility]) [address] [place], [address], 12/01/2024 09:08:59 11/25/19 25 11/26/2024 CBC WITH DIFFE RENTI AL/PL ATELE T hemoglobin 14.1 g/dL 11.1-1 5.9 Not Available [facility] ([facility]) [address], [place], [address], 12/01/2024 09:08:59 11/25/19 25 11/26/2024 CBC WITH DIFFE RENTI AL/PL ATELE T hematocrit 43.2 % 34.0-4 6.6 Not Available [facility] ([facility]) [address], [place], [address], 12/01/2024 09:08:59 11/25/1911/26/2024 CBC WITH DIFFE RENTI AL/PL ATELE T MCV 92 fL 79-97 Not Available [facility] ([facility]) [address], [place], [address], 12/01/2024 09:08:59 11/25/1911/26/2024 CBC WITH DIFFE RENTI AL/PL ATELE T MCH 30.0 pg 26.6-3 3.0 Not Available [facility] ([facility]) [address] [place], [address], 12/01/2024 09:08:59 11/25/1911/26/2024 CBC WITH DIFFE RENTI AL/PL ATELE T MCHC 32.6 g/dL 31.5-3 5.7 Not Available [facility] ([facility]) [address] [place], [address], 12/01/2024 09:08:59 11/25/1911/26/2024 CBC WITH DIFFE RENTI AL/PL ATELE T RDW 12.2 % 11.7-1 5.4 Not Available [facility] ([facility]) [address] [place], [address], 12/01/2024 09:08:59 11/25/19 25 11/26/2024 CBC WITH DIFFE RENTI AL/PL ATELE T platelets 223 x10e3 /uL 150-45 0 Not Available [facility] ([facility]) [address], [place], [address], 12/01/2024 09:08:59 11/25/19 25 11/26/2024 CBC WITH DIFFE RENTI AL/PL ATELE T neutrophils 69 % notest ab. Not Available [facility] ([facility]) [address], [place], [address], 12/01/2024 09:08:59 11/25/19 25 11/26/2024 CBC WITH DIFFE RENTI AL/PL ATELE T lymphs 22 % notest ab. Not Available [facility] ([facility]) [address], [place], [address], 12/01/2024 09:08:59 11/25/19 25 11/26/2024 CBC WITH DIFFE RENTI AL/PL ATELE T monocytes 6 % notest ab. Not Available [facility] ([facility]) [address], [place], [address], 12/01/2024 09:08:59 11/25/19 25 11/26/2024 CBC WITH DIFFE RENTI AL/PL ATELE T eos 2 % notest ab. Not Available [facility] ([facility]) [address], [place], [address], 12/01/2024 09:08:59 11/25/19 25 11/26/2024 CBC WITH DIFFE RENTI AL/PL ATELE T basos 1 % notest ab. Not Available [facility] ([facility]) [address], [place], [address], 12/01/2024 09:08:59 11/25/19 25 11/26/2024 CBC WITH DIFFE RENTI AL/PL ATELE T neutrophils (absolute) 6.7 x10e3 /uL 1.4-7. 0 Not Available [facility] ([facility]) [address], [place], [address], 12/01/2024 09:08:59 11/25/19 25 11/26/2024 CBC WITH DIFFE RENTI AL/PL ATELE T lymphs (absolute) 2.1 x10e3 /uL 0.7-3. 1 Not Available [facility] ([facility]) [address], [place], [address], 12/01/2024 09:08:59 11/25/19 25 11/26/2024 CBC WITH DIFFE RENTI AL/PL ATELE T monocytes(ab solute) 0.5 x10e3 /uL 0.1-0. 9 Not Available [facility] ([facility]) [address], [place], [address], 12/01/2024 09:08:59 11/25/19 25 11/26/2024 CBC WITH DIFFE RENTI AL/PL ATELE T eos (absolute) 0.2 x10e3 /uL 0.0-0. 4 Not Available [facility] ([facility]) [address], [place], [address], 12/01/2024 09:08:59 11/25/19 25 11/26/2024 CBC WITH DIFFE RENTI AL/PL ATELE T baso (absolute) 0.1 x10e3 /uL 0.0-0. 2 Not Available [facility] ([facility]) [address], [place], [address], 12/01/2024 09:08:59 11/25/19 25 11/26/2024 CBC WITH DIFFE RENTI AL/PL ATELE T immature granulocytes 0 % notest ab. Not Available [facility] ([facility]) [address], [place], [address], 12/01/2024 09:08:59 11/25/19 25 11/26/2024 CBC WITH DIFFE RENTI AL/PL ATELE T immature grans (abs) 0.0 x10e3 /uL 0.0-0. 1 Not Available [facility] ([facility]) [address], [place], [address], 12/01/2024 09:08:59 11/25/1911/26/2024 SEDIM ENTAT ION RATE- WESTE RGREN sedimentatio n rate-westerg derrick 10 mm/HR 0-32 Not Available [facility] ([facility]) [address], [place], [address], 12/01/2024 09:09:00 11/25/1911/26/2024 C-ARIANNA CTIVE PROTE IN, QUANT C-reactive protein, quant 5 mg/L 0-10 Not Available [facility] ([facility]) [address], [place], [address], 12/01/2024 09:09:02 11/25/1911/26/2024 VITAM IN D, 25-HY [...] María reza [place]: The [facility] Press . 2. Nery khan MF, [place]ink[place], Gilda off-F errar i BENITEZ, et al. Evalu ation , treat ment, and preve ntion of vitam in D defic iency : an Endoc rine Socie ty clini taco pract ice guide line. JCEM. 2010; 96(7) :1911 -30. Not Available [facility] ([facility]) [address], [place], [address], 12/01/2024 09:09:03 09/07/20 24 09/07/2024 MRI, brain , w/wo contr ast No observ ation record ed. [email or web address] [facility] [address], [place], [address], 09/07/2024 21:34:19 02/13/20 25 02/11/2025 XR, ankle No observ ation record ed. [address] [facility] [address], [place], [address], 02/13/2025 13:56:29 Result Notes None recorded. Problems Name Problem SNOMED Code Status Onset Date Resolution Date Notes Provider Name and Address Organization Details Recorded Time Body mass index 30+ - obesity 748491797 Active 024 Tarsha Santos MA null, [place] - [facility] 4 09:25:13 Obesity 642285269 Active 024 JAJA Martel Attn: Accounting ,[address] [place], [address] , [facility] - SI 4 09:39:44 Sleep disorder 38269271 Active 024 JAJA Martel Attn: Accounting ,[address] [place], [address] , [facility] - SI 4 09:24:12 Multiple joint pain 99467054 Active 024 JAJA Martel Attn: Accounting ,[address] [place], [address] , [facility] - SI 4 09:24:14 Problem Notes None recorded. Procedures Surgical History Date Name Laterality Status Provider Name and Address Organization Details Recorded Time 4 Tubal Ligation completed Tarsha Santos MA [place] - [facility] 10/05/2024 09:21:25 ovarian ablation completed Tarsha Santos MA [place] - [facility] 10/05/2024 09:21:18 Imaging Results Imaging Date Name Status LastModified by Organiz ation Details LastModified Time 09/07/2024 MRI, brain, w/wo contrast completed [email or web address] [facility] [address], [place], [address], 09/07/2024 21:34:19 02/11/2025 XR, ankle [email or web address] [address] [facility] [address], [place], [address], 02/13/2025 13:56:29 Procedure Notes None recorded. Medical Equipment None [...] and Address Organization Details Last Updated DateTime 4 390459. 97 g 36 kg/m2 175.26 cm 20 /min 98 % 98 % 80 /min 130 mm[Hg] 78 mm[Hg] Tarsha Santos MA [facility] 15:23:54 Date Recorded Body height Body mass index (BMI) Body weight Oxygen saturation Oxygen saturation in Arterial blood by Pulse oximetry Heart rate Systolic blood pressure Diastolic blood pressure Provider Name and Address Organization Details Last Updated DateTime 175.26 cm 34.9 kg/m2 169727. 8 g 98 % 98 % 70 /min 128 mm[Hg] 82 mm[Hg] Tarsha Santos MA [facility] 4 09:23:43 Date Recorded Systolic blood pressure Diastolic blood pressure Provider Name and Address Organization Details Last Updated DateTime 10/05/2024 120 mm[Hg] 80 mm[Hg] JAJA Martel Attn: Accounting,[address] [place], [address], [facility] 10/05/2024 09:40:47 Social History Question Answer Notes LastModified by Organizat ion Details LastModified Time Tobacco Smoking Status Never Smoker Tarsha Santos MA null, [facility] 03/03/2024 15:20:49 Do You Have An Advance [...] Anxious, Or Unable To Sleep At Night)? [id number] Information not available 03/03/2024 Do You Use [...] SNOMED-CT Code Diagnosis ICD10 Code Diagnosis Note [id number] JAJA Martel [facility] [address] [place] [address] 03/03/2024 15:00:17 03/03/2024 15:51:34 Butterfly rash 89785917 R21 Check OTONIEL w/multiple x panel Menorrhagia 244412482 N9 2.0 Heavy menstrual cycles reported. check CBC and iron studies. Cholesterol screening 27 6652564 Z13.220 fasting lipids due Diabetes m ellitus screening 262478202 Z13.1 a1c screening due Body mass index 30+ - obesity 342727093 Z68.36 fasting insulin lab due. Fatigue 89548266 R53.83 sleep study a year or two ago did not show any apnea. Recheck B12, folate, vit D, cmp and start phentermin e trial to help with fatigue and weight. Multiple joint pain 3567 8005 M25.50 check full RA panel, ESR, CRP labs Paresthesia 46051843 R20 .2 refer for MRI brain w/wo contrast for persistent paresthesi as noted. Refer to Neurology as she has a myriad of neurologic symptoms that are frequent. Sleep disorder 70609610 G47.9 Start trazodone 50-100mg qhs [id number] JAJA Martel [facility] [facility] e - Ulysses Nelson [address] [place] [address] 10/05/2024 09:16:40 10/05/2024 09:46:08 Body mass index 30+ - obesity 220709484 Z68.34 BMI is 34.9 Obesity 981115206 E66.9 discussed healthy diet, exercise, controllin g carbohydra miri and added sugars in the diet Butterfly rash [id number] R21 Patient did not complete her labs that were ordered in the spring so we are reordering everything . Paresthesia [id number] R20 .2 pt has persistent paresthesi as [...] as sed rate and C-reactive protein Fatigue 98843776 R53.83 Patient did not complete the labs that were ordered in the spring so those are being reordered Sleep disorder 11474494 G47.9 trazodone 50-100mg qhs, dose refilled Pain of ri ght shoulder joint [id number] 4225260 M25.511 1 month of symptoms now. no known injury. daily pain. ROM is limited. Start Medrol Dosepak Menorrhagia [id number] N9 2.0 Patient had hysterosco py with ablation in August for menorrhagi a. We will also check repeat CBC and iron studies and thyroid Cholesterol screening 27 9177745 Z13.220 fasting lipids due Diabetes m ellitus screening 242166994 Z13.1 a1c screening due Health Concerns Section Related Observation LastModified by Organization Cherise mauricio LastModified Time None Recorded Concern Status LastModified by Organization Details LastModified Time None Recorded Advance Directives Directive N: Payers Encounter Date Sequence Insurance Name Policy Number Policy Mccall Covered Member ID Mccall Member ID Guarantor Name 03/03/2024 1 [facility] [id number] Corrine Robertson [id number] Corrine Robertson 10/05/2024 1 [facility] [id number] Corrine Robertson [id number] Corrine Robertson Notes Date Note Type Note [...] at 61. JAJA Martel Attn: Accounting,[address] [place], [address], [facility] 03/07/2024 09:07:22 10/05/2024 text/html Generic HPI TemplateReported [...] at 61. JAJA Martel Attn: Accounting,[address] [place], [address], [facility] - [facility] 10/10/2024 09:28:20 OBGyn Episode No OBEpisode recorded.
--- OUTSIDE RECORDS SUMMARY | 2025-02-16 01:39 | XMS_ITS | Encounter Summary ---
Author Organization [facility] Address [facility] [place] [address] Care Team Providers Care Data Processing Operator Name Role Phone Malina Marcum Primary Care Provider [phone] Encounter Details Date Type Department Care Team (Late st Contact Info) Description 02/14/2025 Orders Only [facility] [address] [place] [address] Vu North MD [address] [facility] 1 [place] [address] Social History Tobacco Use Types Packs/Day Years [...] Description 02/22/2025 10:20 AM CDT Office Visit [facility] Medical Group Multispecialty Care - [facility] [address] [facility], [address] [place] [id number] Dary Fields MD 3 [place] [address] documented as of this encounter Results * (ABNORMAL) CBC, AUTO, NO DIFF (02/14/2025 2:46 PM CDT) WBC 11.29(H) 4.4 - 11.0 x10'3/uL 02/14/2025 3:04 PM CDT [facility] RBC 4.67 4.50 - 5.10 x10'6/uL 02/14/2025 3:04 PM CDT [facility] HGB 14.4 12.3 - 15.3 G/DL 02/14/2025 3:04 PM CDT [facility] HCT 41.7 35.9 - 44.6 % 02/14/2025 3:04 PM CDT [facility] MCV 89.3 80.0 - 96.0 FL 02/14/2025 3:04 PM CDT [facility] MCH 30.8 25.3 - 30.9 PG 02/14/2025 3:04 PM CDT [facility] MCHC 34.5(H) 31.0 - 34.1 G/DL 02/14/2025 3:04 PM CDT [facility] RDW 12.2(L) 12.4 - 15.1 % 02/14/2025 3:04 PM CDT [facility] PLT 217 151 - 353 x10'3/uL 02/14/2025 3:04 PM CDT [facility] MPV 10.9 9.6 - 12.0 FL 02/14/2025 3:04 PM CDT [facility] 02/14/2025 2:46 PM CDT us Vu North MD LABORATORY Final Result [facility] [address] [place] [address], [place] [phone] * (ABNORMAL) COMPREHENSIVE METABOLIC PANEL (02/14/2025 2:46 PM CDT) [facility] GLUCOSE 156(H) 70 - 99 MG/DL 02/14/2025 3:34 PM CDT [facility] BUN 8 7 - 18 MG/DL 02/14/2025 3:34 PM CDT [facility] CREATININE S/P/B 0.71 0.55 - 1.02 MG/DL 02/14/2025 3:34 PM CDT [facility] SODIUM S/P/B 139 136 - 145 MMOL/L 02/14/2025 3:34 PM CDT [facility] POTASSIUM S/P/B 3.6 3.5 - 5.1 MMOL/L 02/14/2025 3:34 PM CDT [facility] CHLORIDE S/P/B 104 100 - 108 MMOL/L 02/14/2025 3:34 PM CDT [facility] CO2 26.2 21 - 32 MMOL/L 02/14/2025 3:34 PM CDT [facility] CALCIUM S/P/B 9.2 8.5 - 10.1 MG/DL 02/14/2025 3:34 PM T [facility] BILIRUBIN TOTAL S/P/B 0.5 0.2 - 1.2 MG/DL 02/14/2025 3:34 PM T [facility] TOTAL PROTEIN S/P/B 7.4 6.4 - 8.2 G/DL 02/14/2025 3:34 PM T [facility] ALBUMIN S/P/B 3.3(L) 3.4 - 5.0 G/DL 02/14/2025 3:34 PM CDT [facility] AST 26 15 - 37 U/L 02/14/2025 3:34 PM CDT [facility] ALT 43 14 - 55 U/L 02/14/2025 3:34 PM CDT [facility] ALKALINE PHOSPHATASE S/P/B 61 50 - 136 U/L 02/14/2025 3:34 PM CDT [facility] ANION GAP 8.8 5 - 15 MMOL/L 02/14/2025 3:34 PM CDT [facility] BUN CREATININE RATIO 11.3 6 - 26 02/14/2025 3:34 PM T [facility] A/G RATIO 0.8(L) 1.0 - 2.0 RATIO 02/14/2025 3:34 PM T [facility] GFR ESTIMATE >90 >90 ML/MIN/1.7 3 M2 02/14/2025 3:34 PM T [facility] Comment: NOTE: eGFR is not calculated for patients <18 years of age. This is an estimated GFR calculation using the new CKD EPI creatinine equation without race and so does not require a correction factor for race. This estimated GFR should not be used for calculating drug doses. 02/14/2025 2:46 PM CDT us Vu North MD LABORATORY Final Result [facility] [address] [place] [address], documented in this encounter Visit Diagnoses Diagnosis Pre-op testing- Primary Preoperative examination, unspecified documented in this encounter Care Teams Data Processing Operator Relationship Specialty Start Date End Date Malina Marcum PA [address] [place] [address] PCP - General PHYSICIAN PHYSICIANS AND SURGEONS 06/30/21 documented as of this encounter
--- OUTSIDE RECORDS SUMMARY | 2025-02-16 01:39 | XMS_ITS | Clinical Summary ---
Author Organization [facility] Address [address] [place] [address] Care Team Providers Care Set Decorator Name Role Phone Farrah Marcumedis WILKINSON Primary Care Pr ovider Gopi Hanks MD Unavailable [phone] Allergies No known active allergies Medications metFORMIN [...] Hanks. Assessment & Plan (12/30/2021 5:10 PM CORE ASSEMBLY SUPERVISOR): 36-year-old female presenting with PMHx migraines and [...] on file Legal Sex Female 5:01 PM CORE ASSEMBLY SUPERVISOR Gender Identity Not on file Sexual Orientation Not on file Obstetrics History Last Filed Vital Signs Vital Sign Reading Time Taken Comments Blood Pressure 130/84 12/30/2021 2:15 PM CORE ASSEMBLY SUPERVISOR Pulse 67 12/30/2021 2:15 PM CORE ASSEMBLY SUPERVISOR Temperature 36.8 C (98.2 F) 01/20/2022 1:03 PM CDT Respiratory Rate - - Oxygen Saturation 98% 12/30/2021 2:15 PM CORE ASSEMBLY SUPERVISOR Inhaled Oxygen Concentration - - Weight 112.1 [...] patient's age to complete this topic Insurance [facility] CHOICE [facility]US [facility] H[facility]/PPO Address: [facility] [address] [id number] Care Teams Set Decorator Relationship Specialty Start Date End Date Malina Marcum PA PCP - General 02/06/17 Gopi Hanks MD [address] [place] [address] Consulting Physician Rheumatology 11/19/21
--- OUTSIDE RECORDS SUMMARY | 2025-02-16 01:39 | XMS_ITS | Clinical Summary ---
Author Organization [facility] Address [address] [place] [address] Care Team Providers Care Address Change Clerk Name Role Phone Malina Marcum Primary Care Provider [phone] Allergies No known active allergies Medications No [...] anemic) 12/20/2021 Adiposity 12/26/2014 Overview (09/10/2023): Obesity Encounters Date Type Department Care Team Description 02/14/2025 2:25 PM CDT - 02/14/2025 11:59 PM CDT Hospital Encounter [facility] [address] [place] [address] Vu North MD Arrived Discharge Disposition: Home or Self Care (Routine Discharge) 02/14/2025 Orders Only [facility] [address] [place] [address] Vu North MD 02/14/2025 Travel from Last 3 Months Immunizations Name Administration Dates Next Due MODERNA [...] 36.9 C (98.5 F) 12/04/2023 2:09 PM MIXED CROP AND LIVESTOCK FARMER Respiratory Rate 18 12/04/2023 2:09 PM MIXED CROP AND LIVESTOCK FARMER Oxygen Saturation 99% 08/08/2024 7:40 AM CDT Inhaled Oxygen Concentration - - Weight 106.6 kg (235 lb) 08/08/2024 7:40 AM CDT Height 175.3 cm (5' 9 ) 08/08/2024 7:40 AM CDT Body Mass Index 34.7 08/08/2024 7:40 AM CDT Plan of Treatment Upcoming Encounters Date Type Department Care Team (Late st Contact Info) Description 02/22/2025 10:20 AM CDT Office Visit [facility] Medical Group Multispecialty Care - [address], [address] [place] [address] Dary Fields MD [address] [place] [address] Health Maintenance Due Date Last Done Comments [...] 5 Years 2015 Cervical Cancer Screening wi HPV 2015 COVID-19 Vaccine (3 - 2023-2 5 season) 2024 01/26/2021, 12/29/2020 PHQ-2 (Physician [place]) 11/09/2024 08/08/2024 HPV Vaccines Aged Out No [...] on patient's age to complete this topic Procedures Procedure Name Priority Date/Time Associated Diagnosis Comments CBC, AUTO, NO DIFF Routine 02/14/2025 2: 46 PM CDT Pre-op testing COMPREHENSIVE METABOLIC PANEL Routine 02/14/2025 2:46 PM CDT Pre-op testing from Last 3 Months Results * (ABNORMAL) COMPREHENSIVE METABOLIC PANEL (02/14/2025 2:46 PM CDT) GLUCOSE 156(H) 70 - 99 MG/DL 02/14/2025 3:34 PM CDT [facility] BUN 8 7 - 18 MG/DL 02/14/2025 3:34 PM CDT [facility] CREATININE S/P/B 0.71 0.55 - 1.02 MG/DL 02/14/2025 3:34 PM CDT [facility] SODIUM S/P/B 139 136 - 145 MMOL/L 02/14/2025 3:34 PM CDT [facility] POTASSIUM S/P/B 3.6 3.5 - 5.1 MMOL/L 02/14/2025 3:34 PM CDT [facility] CHLORIDE S/P/B 104 100 - 108 MMOL/L 02/14/2025 3:34 PM CDT [facility] CO2 26.2 21 - 32 MMOL/L 02/14/2025 3:34 PM CDT [facility] CALCIUM S/P/B 9.2 8.5 - 10.1 MG/DL 02/14/2025 3:34 PM CDT [facility] BILIRUBIN TOTAL S/P/B 0.5 0.2 - 1.2 MG/DL 02/14/2025 3:34 PM T [facility] TOTAL PROTEIN S/P/B 7.4 6.4 - 8.2 G/DL 02/14/2025 3:34 PM [facility] ALBUMIN S/P/B 3.3(L) 3.4 - 5.0 G/DL 02/14/2025 3:34 PM T [facility] AST 26 15 - 37 U/L 02/14/2025 3:34 PM [facility] ALT 43 14 - 55 U/L 02/14/2025 3:34 PM [facility] ALKALINE PHOSPHATASE S/P/B 61 50 - 136 U/L 02/14/2025 3:34 PM [facility] ANION GAP 8.8 5 - 15 MMOL/L 02/14/2025 3:34 PM [facility] BUN CREATININE RATIO 11.3 6 - 26 02/14/2025 3:34 PM [facility] A/G RATIO 0.8(L) 1.0 - 2.0 RATIO 02/14/2025 3:34 PM [facility] GFR ESTIMATE >90 >90 ML/MIN/1.7 3 M2 02/14/2025 3:34 PM [facility] Comment: NOTE: eGFR is not calculated for patients <18 years of age. This is an estimated GFR calculation using the new CKD EPI creatinine equation without race and so does not require a correction factor for race. This estimated GFR should not be used for calculating drug doses. 02/14/2025 2:46 PM CDT us Vu North MD LABORATORY Final Result [facility] [address] [place] [address], [place] [phone] * (ABNORMAL) CBC, AUTO, NO DIFF (02/14/2025 2:46 PM CDT) WBC 11.29(H) 4.4 - 11.0 x10'3/uL 02/14/2025 3:04 PM CDT [facility] RBC 4.67 4.50 - 5.10 x10'6/uL 02/14/2025 3:04 PM CDT [facility] HGB 14.4 12.3 - 15.3 G/DL 02/14/2025 3:04 PM CDT [facility] HCT 41.7 35.9 - 44.6 % 02/14/2025 3:04 PM CDT [facility] MCV 89.3 80.0 - 96.0 FL 02/14/2025 3:04 PM CDT [facility] MCH 30.8 25.3 - 30.9 PG 02/14/2025 3:04 PM CDT [facility] MCHC 34.5(H) 31.0 - 34.1 G/DL 02/14/2025 3:04 PM CDT [facility] RDW 12.2(L) 12.4 - 15.1 % 02/14/2025 3:04 PM CDT [facility] PLT 217 151 - 353 x10'3/uL 02/14/2025 3:04 PM CDT [facility] MPV 10.9 9.6 - 12.0 FL 02/14/2025 3:04 PM CDT [facility] 02/14/2025 2:46 PM CDT us Vu North MD LABORATORY Final Result [facility] [address] [place] [address], [place] [phone] from Last 3 Months Insurance [facility] Care Teams Address Change Clerk Relationship Specialty Start Date End Date Malina Marcum PA [address] [place] [address] PCP - General PHYSICIAN RN [facility] 06/30/21
[2025-02-17] VITALS (12 sets, daily range): BP systolic 102–146; BP diastolic 58–83; PULSE 62–92; RESP 10–18; TEMP 36.5–36.7; O2SAT 93–100
--- NOTE | ~2025-02-17 | CT_ITS ---
EXAMINATION: CT ankle LT wo con DATE: 02/17/2025 10:35 INDICATION: Left ankle fracture TECHNIQUE: High resolution computed tomography (CT) of the left ankle was performed without intraveno us contrast. Additional sagittal and coronal reconstructions were performed. Automated exposure contr ol and iterative reconstruction technique were employed. The dose-length product was 456.78 mGy-cm. COMPARISON: Radiographs dated 02/11/2025 FINDINGS: Mildly comminuted oblique fracture of the distal fibular diaphysis with 4 mm posterolateral displacem ent of the main distal fragment and negligible displacement of a small posterior butterfly fragment. Comminuted posterior malleolar fracture with minimal displacement of the 2 main medial and lateral fr agments located posterior to the primary coronally oriented fracture plane. There is 2 mm depression of the lateral sided fragment. Along the articular anterior margin of the lateral side of fragment is an additional thin sliver-like fragment comprising a 12 x 2 mm region of the tibial plafond which is depressed by 3 mm. There are a few tiny likely avulsion fracture fragments along the posterior medial aspect of the medi al malleolus and along the medial side of the talus consistent with likely deltoid ligament avulsion. There are couple more chronic appearing small heterotopic ossicles the region of the deep deltoid li gament which are likely sequela of an earlier deltoid ligament injury. Ankle mortise remains congruen t. Aside from the flake-like avulsion fracture fragments along the medial side of the talar dome. The re are no other fractures in the visualized mid and hindfoot. Mild osteoarthritis of the tarsal metat arsal joints. Small ankle joint effusion. IMPRESSION: 1. Trimalleolar fracture/injury at the left ankle including a tiny avulsion fracture fragments at the osseous insertions of the deltoid ligament, a comminuted fracture of the posterior malleolus and mil dly comminuted fractures of the distal fibular diaphysis. Reviewed, dictated and finalized at location B. IMPRESSION: 1. Trimalleolar fracture/injury at the left ankle including a tiny avulsion fra cture fragments at the osseous insertions of the deltoid ligament, a comminuted fracture of the posterior malleolus and mildly comminuted fractures of the dis conrad fibular diaphysis.
--- NOTE | ~2025-02-17 | XR_ITS ---
EXAMINATION: XR surgery orthopedic DATE: 02/17/2025 14:29 INDICATION: ORIF left ankle fracture TECHNIQUE: 7 fluoroscopic images of the left ankle were obtained during procedure performed by Dr. Mihir mcgregor. Radiologist was not present for the imaging or procedure. The amount of fluoroscopy time used during this procedure was 1.8 minutes. Total DAP was 0.772 mGym^2. COMPARISON: None. FINDINGS: Interval open reduction and internal fixation of the previous noted distal fibular diaphyseal fractur e with a lateral plate and screws which is now in essentially anatomic alignment. This includes a scr ew spanning the distal tibial fibular syndesmosis. Ankle mortise is congruent. No change in a minimal ly displaced coronally oriented fracture extending across the posterior malleolus which is not includ ed within the fixation with negligible step-off along the posterior articular surface of the tibial p serjio. Again seen is minimal distraction of a small flake-like avulsion fracture fragment along the medial margin of the medial malleolus which is also not included within the fixation. Profiled ankle and subtalar joint spaces are normal. IMPRESSION: 1. Near-anatomic alignment post open reduction internal fixation of a left ankle fracture as detailed above. Reviewed, dictated and finalized at location A. IMPRESSION: 1. Near-anatomic alignment post open reduction internal fixation of a left ankl e fracture as detailed above.
--- OUTSIDE RECORDS SUMMARY | 2025-02-17 01:21 | XMS_ITS | Referral Summary ---
Author Organization [facility] Address [address] [place] [address] Care Team Providers Care Sales Representative Public Utilities Name Role Phone Farrah Marcumedis WILKINSON Primary Care Pr ovider Gopi Hanks MD Unavailable [phone] Allergies No known active allergies Medications metFORMIN [...] Hanks. Assessment & Plan (12/30/2021 5:10 PM URGENT CARE PHYSICIAN ASSISTANT): 36-year-old female presenting with PMHx migraines and [...] on file Legal Sex Female 5:01 PM URGENT CARE PHYSICIAN ASSISTANT Gender Identity Not on file Sexual Orientation Not on file Last Filed Vital Signs Vital Sign Reading Time Taken Comments Blood Pressure 130/84 12/30/2021 2:15 PM URGENT CARE PHYSICIAN ASSISTANT Pulse 67 12/30/2021 2:15 PM URGENT CARE PHYSICIAN ASSISTANT Temperature 36.8 C (98.2 F) 01/20/2022 1:03 PM CDT Respiratory Rate - - Oxygen Saturation 98% 12/30/2021 2:15 PM URGENT CARE PHYSICIAN ASSISTANT Inhaled Oxygen Concentration - - Weight 112.1 kg (247 lb 3.2 oz) 01/20/2022 1:03 PM CDT Height 170.2 cm (5' 7 ) 02/10/2017 1:26 PM CDT Body Mass Index 38.72 02/10/2017 1:26 PM CDT Plan of Treatment Not on file Insurance [employer] CHOICE PLUS Care Teams Sales Representative Public Utilities Relationship Specialty Start Date End Date Malina Marcum PA PCP - General 02/06/17 Gopi Hanks MD [address] [place] [address] Consulting Physician Rheumatology 11/19/21
--- OUTSIDE RECORDS SUMMARY | 2025-02-17 01:21 | XMS_ITS | Encounter Summary ---
Author Organization [facility] Address Counts include 234 beds at the [facility] [place] [address] Care Team Providers Care Driver Medic Name Role Phone Malina Marcum Primary Care Provider [phone] Encounter Details Date Type Department Care Team (Late st Contact Info) Description 02/14/2025 Orders Only [facility] [address] [place] [address] Vu North MD [address] [facility] 1 [place] [address] Social History Tobacco Use Types [...] Description 02/22/2025 10:20 AM CDT Office Visit [facility] Medical Group Multispecialty Care - [facility] [address] [facility], [address] [place] [phone] Dary Fields MD 3 [place] [address] documented as of this encounter Results * (ABNORMAL) CBC, AUTO, NO DIFF (02/14/2025 2:46 PM CDT) WBC 11.29(H) 4.4 - 11.0 x10'3/uL 02/14/2025 3:04 PM CDT [facility] RBC 4.67 4.50 - 5.10 x10'6/uL 02/14/2025 3:04 PM CDT [facility] HGB 14.4 12.3 - 15.3 G/DL 02/14/2025 3:04 PM CDT [facility] HCT 41.7 35.9 - 44.6 % 02/14/2025 3:04 PM CDT [facility] MCV 89.3 80.0 - 96.0 FL 02/14/2025 3:04 PM CDT [facility] MCH 30.8 25.3 - 30.9 PG 02/14/2025 3:04 PM CDT [facility] MCHC 34.5(H) 31.0 - 34.1 G/DL 02/14/2025 3:04 PM CDT [facility] RDW 12.2(L) 12.4 - 15.1 % 02/14/2025 3:04 PM CDT [facility] PLT 217 151 - 353 x10'3/uL 02/14/2025 3:04 PM CDT [facility] MPV 10.9 9.6 - 12.0 FL 02/14/2025 3:04 PM CDT [facility] 02/14/2025 2:46 PM CDT us Vu North MD LABORATORY Final Result [facility] [address] [place] [address], [place] [phone] * (ABNORMAL) COMPREHENSIVE METABOLIC PANEL (02/14/2025 2:46 PM CDT) [facility] GLUCOSE 156(H) 70 - 99 MG/DL 02/14/2025 3:34 PM CDT [facility] BUN 8 7 - 18 MG/DL 02/14/2025 3:34 PM CDT [facility] CREATININE S/P/B 0.71 0.55 - 1.02 MG/DL 02/14/2025 3:34 PM CDT [facility] SODIUM S/P/B 139 136 - 145 MMOL/L 02/14/2025 3:34 PM CDT [facility] POTASSIUM S/P/B 3.6 3.5 - 5.1 MMOL/L 02/14/2025 3:34 PM CDT [facility] CHLORIDE S/P/B 104 100 - 108 MMOL/L 02/14/2025 3:34 PM CDT [facility] CO2 26.2 21 - 32 MMOL/L 02/14/2025 3:34 PM CDT [facility] CALCIUM S/P/B 9.2 8.5 - 10.1 MG/DL 02/14/2025 3:34 PM T [facility] BILIRUBIN TOTAL S/P/B 0.5 0.2 - 1.2 MG/DL 02/14/2025 3:34 PM T [facility] TOTAL PROTEIN S/P/B 7.4 6.4 - 8.2 G/DL 02/14/2025 3:34 PM T [facility] ALBUMIN S/P/B 3.3(L) 3.4 - 5.0 G/DL 02/14/2025 3:34 PM CDT [facility] AST 26 15 - 37 U/L 02/14/2025 3:34 PM CDT [facility] ALT 43 14 - 55 U/L 02/14/2025 3:34 PM CDT [facility] ALKALINE PHOSPHATASE S/P/B 61 50 - 136 U/L 02/14/2025 3:34 PM CDT [facility] ANION GAP 8.8 5 - 15 MMOL/L 02/14/2025 3:34 PM CDT [facility] BUN CREATININE RATIO 11.3 6 - 26 02/14/2025 3:34 PM T [facility] A/G RATIO 0.8(L) 1.0 - 2.0 RATIO 02/14/2025 3:34 PM T [facility] GFR ESTIMATE >90 >90 ML/MIN/1.7 3 M2 02/14/2025 3:34 PM T [facility] Comment: NOTE: eGFR is not calculated for patients <18 years of age. This is an estimated GFR calculation using the new CKD EPI creatinine equation without race and so does not require a correction factor for race. This estimated GFR should not be used for calculating drug doses. 02/14/2025 2:46 PM CDT us Vu North MD LABORATORY Final Result [facility] [address] [place] [address], documented in this encounter Visit Diagnoses Diagnosis Pre-op testing- Primary Preoperative examination, unspecified documented in this encounter Care Teams Driver Medic Relationship Specialty Start Date End Date Malina Marcum PA [address] [place] [address] PCP - General PHYSICIAN FUNERAL DIRECTOR 06/30/21 documented as of this encounter
--- OUTSIDE RECORDS SUMMARY | 2025-02-17 01:21 | XMS_ITS | Clinical Summary ---
Author Organization [facility] Address [address] [place] [address] Care Team Providers Care Brazer Electronic Name Role Phone Farrah Marcumedis WILKINSON Primary Care Pr ovider Gopi Hanks MD Unavailable [phone] Allergies No known active allergies Medications metFORMIN [...] Hanks. Assessment & Plan (12/30/2021 5:10 PM AIR TRAFFIC CONTROL OPERATOR): 36-year-old female presenting with PMHx migraines and [...] on file Legal Sex Female 5:01 PM AIR TRAFFIC CONTROL OPERATOR Gender Identity Not on file Sexual Orientation Not on file Obstetrics History Last Filed Vital Signs Vital Sign Reading Time Taken Comments Blood Pressure 130/84 12/30/2021 2:15 PM AIR TRAFFIC CONTROL OPERATOR Pulse 67 12/30/2021 2:15 PM AIR TRAFFIC CONTROL OPERATOR Temperature 36.8 C (98.2 F) 01/20/2022 1:03 PM CDT Respiratory Rate - - Oxygen Saturation 98% 12/30/2021 2:15 PM AIR TRAFFIC CONTROL OPERATOR Inhaled Oxygen Concentration - - Weight 112.1 [...] patient's age to complete this topic Insurance [employer] CHOICE PLUS [place] [id number] Care Teams Brazer Electronic Relationship Specialty Start Date End Date Malina Marcum PA PCP - General 02/06/17 Gopi Hanks MD [address] [place] [address] Consulting Physician Rheumatology 11/19/21
--- OUTSIDE RECORDS SUMMARY | 2025-02-17 01:21 | XMS_ITS | Clinical Summary ---
Author Organization [facility] Address [facility] [place] [address] Care Team Providers Care Casing Wringer Operator Name Role Phone Malina Marcum Primary Care Provider [phone] Allergies No known active allergies Medications No [...] - 02/14/2025 11:59 PM CDT Hospital Encounter [facility] [place] [facility] [address] [place] [address] Vu North MD Arrived Discharge Disposition: Home or Self Care (Routine Discharge) 02/14/2025 Orders Only [facility] [address] [place] [address] Vu North MD 02/14/2025 Travel from Last [...] 36.9 C (98.5 F) 12/04/2023 2:09 PM NUT PROCESSING SUPERVISOR Respiratory Rate 18 12/04/2023 2:09 PM NUT PROCESSING SUPERVISOR Oxygen Saturation 99% 08/08/2024 7:40 AM CDT Inhaled Oxygen Concentration - - Weight 106.6 kg (235 lb) 08/08/2024 7:40 AM CDT Height 175.3 cm (5' 9 ) 08/08/2024 7:40 AM CDT Body Mass Index 34.7 08/08/2024 7:40 AM CDT Plan of Treatment Upcoming Encounters Date Type Department Care Team (Late st Contact Info) Description 02/22/2025 10:20 AM CDT Office Visit [facility] - [address], [address] [place] [address] Dary Fields MD [address] [place] [address] Health Maintenance Due Date Last Done Comments [...] 5 season) 2024 01/26/2021, 12/29/2020 PHQ-2 (Physician [place]) 11/09/2024 08/08/2024 HPV Vaccines Aged Out No [...] - 99 MG/DL 02/14/2025 3:34 PM CDT [facility] BUN 8 7 - 18 MG/DL 02/14/2025 3:34 PM CDT [facility] CREATININE S/P/B 0.71 0.55 - 1.02 MG/DL 02/14/2025 3:34 PM CDT [facility] SODIUM S/P/B 139 136 - 145 MMOL/L 02/14/2025 3:34 PM CDT [facility] POTASSIUM S/P/B 3.6 3.5 - 5.1 MMOL/L 02/14/2025 3:34 PM CDT [facility] CHLORIDE S/P/B 104 100 - 108 MMOL/L 02/14/2025 3:34 PM CDT [facility] CO2 26.2 21 - 32 MMOL/L 02/14/2025 3:34 PM CDT [facility] CALCIUM S/P/B 9.2 8.5 - 10.1 MG/DL 02/14/2025 3:34 PM CDT [facility] BILIRUBIN TOTAL S/P/B 0.5 0.2 - 1.2 MG/DL 02/14/2025 3:34 PM T [facility] TOTAL PROTEIN S/P/B 7.4 6.4 - 8.2 G/DL 02/14/2025 3:34 PM [facility] ALBUMIN S/P/B 3.3(L) 3.4 - 5.0 G/DL 02/14/2025 3:34 PM T [facility] AST 26 15 - 37 U/L 02/14/2025 3:34 PM [facility] ALT 43 14 - 55 U/L 02/14/2025 3:34 PM [facility] ALKALINE PHOSPHATASE S/P/B 61 50 - 136 U/L 02/14/2025 3:34 PM [facility] ANION GAP 8.8 5 - 15 MMOL/L 02/14/2025 3:34 PM [facility] BUN CREATININE RATIO 11.3 6 - 26 02/14/2025 3:34 PM [facility] A/G RATIO 0.8(L) 1.0 - 2.0 RATIO 02/14/2025 3:34 PM [facility] GFR ESTIMATE >90 >90 ML/MIN/1.7 3 M2 02/14/2025 3:34 PM [facility] Comment: NOTE: eGFR is not calculated for patients <18 years of age. This is an estimated GFR calculation using the new CKD EPI creatinine equation without race and so does not require a correction factor for race. This estimated GFR should not be used for calculating drug doses. 02/14/2025 2:46 PM CDT us Vu North MD LABORATORY Final Result [facility] [address] [place] [address], [place] [phone] * (ABNORMAL) CBC, AUTO, NO DIFF (02/14/2025 2:46 PM CDT) WBC 11.29(H) 4.4 - 11.0 x10'3/uL 02/14/2025 3:04 PM CDT [facility] RBC 4.67 4.50 - 5.10 x10'6/uL 02/14/2025 3:04 PM CDT [facility] HGB 14.4 12.3 - 15.3 G/DL 02/14/2025 3:04 PM CDT [facility] HCT 41.7 35.9 - 44.6 % 02/14/2025 3:04 PM CDT [facility] MCV 89.3 80.0 - 96.0 FL 02/14/2025 3:04 PM CDT [facility] MCH 30.8 25.3 - 30.9 PG 02/14/2025 3:04 PM CDT [facility] MCHC 34.5(H) 31.0 - 34.1 G/DL 02/14/2025 3:04 PM CDT [facility] RDW 12.2(L) 12.4 - 15.1 % 02/14/2025 3:04 PM CDT [facility] PLT 217 151 - 353 x10'3/uL 02/14/2025 3:04 PM CDT [facility] MPV 10.9 9.6 - 12.0 FL 02/14/2025 3:04 PM CDT [facility] 02/14/2025 2:46 PM CDT us Vu North MD LABORATORY Final Result [facility] [address] [place] [address], [place] [phone] from Last 3 Months Insurance [facility] Care Teams Casing Wringer Operator Relationship Specialty Start Date End Date Malina Marcum PA [address] [place] [address] PCP - General PHYSICIAN YARN TWISTER 06/30/21
--- NOTE | 2025-02-17 11:01 | P.PNAN_ITS ---
Anes - Initial Pre Proc Eval Procedure: Operation Date: 02/17/25 12:30 Proposed Procedures p Left Ankle Open Reduction Internal Fixation - Vu North MD Date/Time: 02/17/25 11:01 Surgeon: Vu North MD Pre Op Diagnosis: left ankle fracture Patient Data Age: 39 Gender: F Height: 1.75 m Weight: 100 kg Allergies Allergy/AdvReac Type Severity Reaction Status Date / Time No Known Allergies Allergy Verified 02/15/25 10:17 Home Medications ?Medication ?Instructions ?Recorded ?Confirmed ?Type ergocalciferol (vitamin D2) 1,250 1,250 mcg 12/14/24 History mcg (50,000 unit) capsule hydrocodone 5 mg-acetaminophen 325 1 tablet PO Q6H PRN pain #20 tabs 02/11/25 Rx mg tablet ergocalciferol (vitamin D2) 1,250 1,250 mcg PO WEEKLY 02/14/25 02/14/25 History mcg (50,000 unit) capsule hydrocodone 5 mg-acetaminophen 325 1 tablet PO BID 02/14/25 02/14/25 History mg tablet ibuprofen 200 mg tablet (Advil) 200 mg PO Q6H 02/14/25 02/14/25 History multivitamin (Daily Multi-Vitamin 1 tablet PO DAILY 02/14/25 02/14/25 History tablet) Patient hx anesthesia problems: none Family hx anesthesia problems: none Results Review: All pre-operative results and documents have been reviewed as part of the pre- operative evaluation. [facility] Past Medical History Medical History Insomnia Acne Obesity Kidney stones Migraines Depression Anxiety Female hirsutism Impaired glucose tolerance Surgical History Surgical History H/O bilateral salpingectomy (08/18/24) pathology benign Family History Family History Mother Diabetes mellitus Cerebrovascular accident Hypertension Heart disease Cirrhosis of liver Grandparent Breast cancer maternal grandmother Other Carcinoma of colon Social History Social History Smoking status: Never smoker Second hand tobacco smoke exposure: No Alcohol intake: never Substance use: never Substance use type: does not use Do You Feel Safe in your Home?: Yes Lack of Transportation: No Lack of Food: Never True Current Housing: I Have Housing Concerned About Future Housing: No Difficulty Paying Gas/Electric Bills: Decline to Answer Difficulty Paying for Meds: No Education: Associate Degree Difficulty w/ Childcare or Family Care: No Living arrangements: with family Additional living arrangements comments: with son and S/O Occupation/Education: occupation Gender identity (if verbalized by the patient): Female Spiritual care concerns: No Anes - Eval Final PreProcedure Day of Procedure 02/17/25 11:01 Patient weight: obese Heart: regular rate and rhythm Lungs: clear to auscultation Airway: Mallampati scale class II Neurological: alert and oriented Last oral intake: >/= 8 hours ASA classification: II Emergent: no Anesthetic plan: proceed Anesthesia type and monitoring: general LMA and standard monitoring Results Review: All pre-operative results and documents have been reviewed as part of the pre- operative evaluation. Informed Consent: The patient's anesthetic plan and its attendant risks and benefits were discussed with the patient/family/POA. Questions were solicited and answers provided to the satisfaction of the patient/family/POA.
[2025-02-17] MEDS: LACTATED RINGERS 1,000 ML 30 ML IV CONT ×4 (11:10→17:25)
[2025-02-17] MEDS: ACETAMINOPHEN 500 MG TABLET 1000 MG PO (11:10)
[2025-02-17] MEDS: KETOROLAC 15 MG/ML VIAL (*BKC) IV PUSH (11:10)
--- NOTE | 2025-02-17 12:13 | WPDHPUPDATE1 ---
History and Physical Update Update Date/Time: 02/17/25 12:13 History and Physical has been reviewed, including an updated exam of the patient. There are NO changes in the patient's condition. Risks, benefits, and alternatives have been discussed and questions answered. Patient agrees to proceed with procedure. Treatment plan: Left Ankle Open Reduction with internal plate and screw fixation Risks include but are not limited to malunion, nonunion, nerve injury, blood vessel injury, infection, hardware irritation requiring additional surgery to remove hardware, DVT and patient agrees to proceed. Alternative is non-surgical which is associated with poor outcome due to post traumatic arthritis.
--- NOTE | 2025-02-17 12:15 | PM.IMHP ---
H&P: HPI History of Present Illness Date/Time: 02/17/25 12:15 Chief Complaint: Left ankle pain and swelling Narrative: Pain located anterolateral ankle with 5/10 pain, sharp, constant with any movement and alleviated by rest. Left Ankle PMFSH Past Medical History Medical History Insomnia Acne Obesity Kidney stones Migraines Depression Anxiety Female hirsutism Impaired glucose tolerance Surgical History Surgical History H/O bilateral salpingectomy (08/18/24) pathology benign Family History Family History Mother Diabetes mellitus Cerebrovascular accident Hypertension Heart disease Cirrhosis of liver Grandparent Breast cancer maternal grandmother Other Carcinoma of colon Social History Social History Smoking status: Never smoker Second hand tobacco smoke exposure: No Alcohol intake: never Substance use: never Substance use type: does not use Do You Feel Safe in your Home?: Yes Lack of Transportation: No Lack of Food: Never True Current Housing: I Have Housing Concerned About Future Housing: No Difficulty Paying Gas/Electric Bills: Decline to Answer Difficulty Paying for Meds: No Education: Associate Degree Difficulty w/ Childcare or Family Care: No Living arrangements: with family Additional living arrangements comments: with son and S/O Occupation/Education: occupation Gender identity (if verbalized by the patient): Female Spiritual care concerns: No Meds Home Medications and Allergies Home Medications ?Medication ?Instructions ?Recorded ?Confirmed ?Type ergocalciferol (vitamin D2) 1,250 1,250 mcg 12/14/24 History mcg (50,000 unit) capsule hydrocodone 5 mg-acetaminophen 325 1 tablet PO Q6H PRN pain #20 tabs 02/11/25 Rx mg tablet ergocalciferol (vitamin D2) 1,250 1,250 mcg PO WEEKLY 02/14/25 02/14/25 History mcg (50,000 unit) capsule hydrocodone 5 mg-acetaminophen 325 1 tablet PO BID 02/14/25 02/14/25 History mg tablet ibuprofen 200 mg tablet (Advil) 200 mg PO Q6H 02/14/25 02/14/25 History multivitamin (Daily Multi-Vitamin 1 tablet PO DAILY 02/14/25 02/14/25 History tablet) Allergies Allergy/AdvReac Type Severity Reaction Status Date / Time No Known Allergies Allergy Verified 02/15/25 10:17 Vital Signs Vital Signs - 24 hr 02/17/25 11:10 Temperature 36.5 C Pulse Rate 86 Respiratory Rate 14 Blood Pressure 117/78 Pulse Oximetry 100 Oxygen Delivery Room Air Exam Narrative: left ankle in fracture boot and NVI Assessment and Plan Assessment and plan (1) Closed left ankle fracture: Code(s): S82.892A - Other fracture of left lower leg, initial encounter for closed fracture Status: Acute Plan Unstable Left Ankle Fracture, recommend ORIF of Left Ankle.
[2025-02-17] MEDS: ceFAZolin 2 GM/D5W 50 ML 2 GM/50 ML BAG IVPB (12:46)
[2025-02-17] MEDS: ceFAZolin SODIUM 1 GM VIAL IV PUSH (14:17)
[2025-02-17] MEDS: LIDO 1%/EPINEPHRINE 1:100,000 20 ML VIAL 30 ML INFILTRATE (14:19)
[2025-02-17] MEDS: fentaNYL CITRATE INJ (*CRX) 100 MCG/2 ML VIAL 25 MCG IV PUSH ×8 (15:22→16:01)
--- NOTE | 2025-02-17 15:33 | W.PM.PROC2 ---
Procedure Note - Detailed Date of Procedure 02/17/25 Pre-op Diagnosis left ankle bimalleolar fracture Post-op Diagnosis Same Procedure Performed Left Ankle Open Reduction with Internal fixation of Bimalleolar Fracture Left Ankle Syndesmotic Screw Fixation Surgeon Vu North MD Anesthesia General Indications Left Ankle Unstable Fracture requiring reduciton in emergency Room Findings Left Ankle Unstable Fracture with <25% Posterior Malleolus Involvement and syndesmotic injury Description of Procedure Patient is a 39-year-old female who had an ankle fracture dislocation that was reduced in the emergency room at [facility] I then saw the patient about 2-3 days after the injury and evaluated the patient who is actually quite comfortable at the time he was seen in my clinic remarkably and appeared that she had a pronation type injury to the lateral malleolus which was a high ankle fracture as well as a posterior malleolus fracture less than 25% evident on x-ray. Due the fact the patient was unstable required reduction I advised patient that is my recommendation for surgical fixation in order to help decrease probability posttraumatic arthritis. After obtaining consent for a left ankle open reduction internal fixation, the patient was then brought to the operative room placed in the supine position and underwent general anesthesia. A posterior bone was placed behind the patient's left hip left lower extremity was signed prepped and draped in a standard sterile fashion with a proximal thigh tourniquet. Esmarch exsanguination was used and tourniquet was elevated to 300 mmHg. Prior to this a time-out was performed to verify correct patient correct procedure correct side as well as verifying the 2 g of antibiotics were administered within 1 hour of the procedure. After the lower extremity was prepped and draped in st. Incision on the lateral aspect of the patient's ankle centered over the fracture site that extended approximately 10 in. Dissection was carried down to the 2nd toe with the sural nerve. I then able to identify the fracture site obtain reduction with a reduction fluoroscopy was used to verify reduction and also maintenance of the mortise and it was indeed well maintained. After this was obvious that the only way to secure the fracture was through the plate and obtained reduction and held the reduction in place with a plate was not possible to place an interfragmentary screw given the comminuted characteristics of the fracture. Although the lateral aspect of the fracture I was able to ponce in perfectly to obtain tip to obtain the original fibular length. I then placed 2 screws into Sal the 8 hole plate that were nonlocking screws in order to secure the fracture. I then proceeded to place multiple screws proximally as well as distally in order to secure the fracture. For 3 cortices secured proximally and multiple cores coursing secured distally as well as 2 syndesmotic screws. The syndesmotic screws were within the safe range for fixation which was out of the distal tib-fib joint. Lateral x-rays were used to verify position of the screws. The procedure verified that the mortise was well-maintained the fracture was well reduced and hemostasis was obtained after deflating the tourniquet. Then injected the subcutaneous tissues both the skin with 1% lidocaine. I then irrigated with antibiotic solution which included Ancef 1 gram/liter. I then closed the incision site using a dermal closure with 2 Vicryl suture and the skin closure using a running nylon locking suture of 2 Quill suture. The left ankle is) toe fashion placed in a posterior splint shows transferred to recovery room stable condition. Treatment plan for this patient is to be strict nonweightbearing on this extremity. I discussed this with her father Gurdeep after surgery and also the patient prior to surgery. Patient was informed there is a moderate probability for DVT and therefore she is to start taking a full aspirin tomorrow per 325 mg daily she is also to take Tylenol 1000 mg 3 times a day as well as tramadol as needed for pain. I will see her back on Thursday she is to be strict nonweightbearing and elevate this extremity. Implants Martha Pangea Fibular Plate Estimated Blood Loss 25 Tourniquet Time Total Tourniquet Time: 70 min Drains No Packing No Pathology None sent Complications No immediate complications Condition Stable Disposition PACU
[2025-02-17] MEDS: ONDANSETRON INJ 4 MG/2 ML VIAL IV PUSH (15:54)
[2025-02-17] MEDS: SCOPOLAMINE 1 MG PATCH 1 PATCH TRANSDERM (17:22)
[2025-02-17] MEDS: diphenhydrAMINE HCl INJ 50 MG/ML VIAL 12.5 MG IV PUSH (17:22)
--- NOTE | 2025-02-17 18:19 | SUR.PHASEII ---
Patient stable and ready for discharge. Patient states she did not get her pain medication prescription and only has one pill left from her prescription the ER gave her. Call made to Dr North to get a new prescription sent in, awaiting a return call.
== END 2025-02-17 18:40 | disposition home or self-care (01) ==
PROVIDERS: PCP Physician Assistant; Visit Provider Orthopaedic Surgery
PROC: (CPT 27814; principal; 2025-02-17 12:30)
DX: S82.842A Displaced bimalleolar fracture of left lower leg, initial encounter for closed fracture (principal); S93.432A Sprain of tibiofibular ligament of left ankle, initial encounter; X50.0XXA Overexertion from strenuous movement or load, initial encounter; E66.9 Obesity, unspecified; Z68.35 Body mass index [BMI] 35.0-35.9, adult
CPT/HCPCS: 27814; 27829; 73700; 99199; A9270; J0690; J1100; J1200; J1885; J2003; J2004; J2250; J2270; J2405; J2704; J3010; J7120